=== PATIENT | female | born 1955 | race Caucasian/White ===

== ENCOUNTER 2018-04-15 14:02 | Inpatient (IN) | payer MEDICARE, OTHER ==
[2018-04-15 16:32] VITALS: BP 107/80
[2018-04-15 20:06] LABS: CHOLESTEROL 206 mg/dL (<200); HDL -HIGH DENSITY LIPOPROTEIN 39 mg/dL (23-92); TRIGLYCERIDES 317 mg/dL (<150)
[2018-04-15] MEDS ORDERED: Non-Formulary Item 1 EA (Trazodone Hcl [Trazodone Hcl] 150 MG) PO SCH (21:00)
[2018-04-16] MEDS ORDERED: Non-Formulary Item 1 EA (Fluoxetine Hcl [Prozac] 40 MG) PO SCH (09:00)
[2018-04-16] MEDS: Sulfamethoxazole/TMP 800/160mg Tab PO SCH ×2 (09:38→17:08)
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
[2018-04-16] MEDS: Hydrocodone/APAP 5mg/325mg Tab PO PRN (14:38)
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
[2018-04-17 07:24] LABS: ALB/GLOB RATIO 1.7 (1.0-1.8); ALKALINE PHOSPHATASE 81 U/L (34-104); ANION GAP 11.3 (7.0-16.0); BILIRUBIN,TOTAL 0.7 mg/dL (0.3-1.0); BUN - UREA NITROGEN 18 mg/dL (7-25); CALCIUM SERUM 9.9 mg/dL (8.6-10.3); CARBON DIOXIDE 24.1 mEq/L (21.0-31.0); CHLORIDE 106 mEq/L (98-107); CREATININE - SERUM 0.9 mg/dL (0.6-1.2); GFR AFRICAN-AMERICAN > 60.0 ml/min (>90); GFR NON AFRICAN-AMERICAN > 60.0 ml/min; GLUCOSE 88 mg/dL (70-105); POTASSIUM SERUM 4.4 mEq/L (3.5-5.1); SGOT 10 U/L (13-39); SGPT/ALT 9 U/L (7-52); SODIUM SERUM 137 mEq/L (136-145); TOTAL PROTEIN,SERUM 6.3 gm/dL (6.0-8.3)
[2018-04-17 07:29] LABS: % BASOPHILS 0.9 % (0.0-2.0); % EOSINOPHILS 3.5 % (0.0-5.0); % LYMPHOCYTES 32.3 % (20.0-50.0); % MONOCYTES 6.5 % (2.0-10.0); % NEUTROPHILS 56.8 % (40.0-80.0); BASOPHILE ABSOLUTE 0.1 Th/cumm (0-0.2); EOSINOPHILE ABSOLUTE 0.3 Th/cmm (0.1-0.4); HEMATOCRIT 38.3 % (41.0-60); HEMOGLOBIN 12.9 gm/dL (12-16); LYMPHOCYTE ABSOLUTE 2.8 Th/cmm (1.5-3.0); MEAN CELL VOLUME 85.3 fl (81-100); MEAN CORPUSCULAR HEMOGLOBIN 28.7 pg (27.0-31.0); MEAN CORPUSCULAR HGB CONC 33.7 pg (28.0-36.0); MEAN PLATELET VOLUME 9.8 fl; MONOCYTE ABSOLUTE 0.6 Th/cmm (0.3-1.0); NEUTROPHILE ABSOLUTE 4.8 Th/cmm (1.8-8.0); PLATELET COUNT 213 Th/cmm (150-400); RED BLOOD COUNT 4.49 Mil/cmm (3.80-5.20); RED CELL DISTRIBUTION WIDTH 12.3 % (11.5-20.0); WHITE BLOOD COUNT 8.6 Th/cmm (4.8-10.8)
[2018-04-17] MEDS: Sulfamethoxazole/TMP 800/160mg Tab PO SCH ×2 (08:55→17:10)
[2018-04-17] MEDS: Hydrocodone/APAP 5mg/325mg Tab PO PRN ×3 (08:56→21:15)
--- NOTE | 2018-04-17 13:06 | General Progress Note ---
Subjective - Review of Systems Service Date: 04/17/18 Subjective: Patient is confused Objective - Results Result Diagrams: 04/17/18 06:10 04/17/18 06:10 Recent Labs: Laboratory Last Values WBC 8.6 Th/cmm (4.8-10.8) 04/17/18 06:10 RBC 4.49 Mil/cmm (3.80-5.20) 04/17/18 06:10 Hgb 12.9 gm/dL (12-16) 04/17/18 06:10 Hct 38.3 % (41.0-60) L 04/17/18 06:10 MCV 85.3 fl (81-100) 04/17/18 06:10 MCH 28.7 pg (27.0-31.0) 04/17/18 06:10 MCHC Differential 33.7 pg (28.0-36.0) 04/17/18 06:10 RDW 12.3 % (11.5-20.0) 04/17/18 06:10 Plt Count 213 Th/cmm (150-400) 04/17/18 06:10 MPV 9.8 fl 04/17/18 06:10 Neutrophils % 56.8 % (40.0-80.0) 04/17/18 06:10 Lymphocytes % 32.3 % (20.0-50.0) 04/17/18 06:10 Monocytes % 6.5 % (2.0-10.0) 04/17/18 06:10 Eosinophils % 3.5 % (0.0-5.0) 04/17/18 06:10 Basophils % 0.9 % (0.0-2.0) 04/17/18 06:10 Sodium 137 mEq/L (136-145) 04/17/18 06:10 Potassium 4.4 mEq/L (3.5-5.1) 04/17/18 06:10 Chloride 106 mEq/L (98-107) 04/17/18 06:10 Carbon Dioxide 24.1 mEq/L (21.0-31.0) 04/17/18 06:10 Anion Gap 11.3 (7.0-16.0) 04/17/18 06:10 BUN 18 mg/dL (7-25) 04/17/18 06:10 Creatinine 0.9 mg/dL (0.6-1.2) 04/17/18 06:10 Est GFR ( Amer) > 60.0 ml/min (>90) 04/17/18 06:10 Est GFR (Non-Af Amer) > 60.0 ml/min 04/17/18 06:10 BUN/Creatinine Ratio 20.0 04/17/18 06:10 Glucose 88 mg/dL (70-105) 04/17/18 06:10 Calcium 9.9 mg/dL (8.6-10.3) 04/17/18 06:10 Total Bilirubin 0.7 mg/dL (0.3-1.0) 04/17/18 06:10 AST 10 U/L (13-39) L 04/17/18 06:10 ALT 9 U/L (7-52) 04/17/18 06:10 Alkaline Phosphatase 81 U/L (34-104) 04/17/18 06:10 Total Protein 6.3 gm/dL (6.0-8.3) 04/17/18 06:10 Albumin 4.0 gm/dL (3.7-5.3) 04/17/18 06:10 Globulin 2.3 gm/dL 04/17/18 06:10 Albumin/Globulin Ratio 1.7 (1.0-1.8) 04/17/18 06:10 Triglycerides 317 mg/dL (<150) H 04/15/18 19:45 Cholesterol 206 mg/dL (<200) H 04/15/18 19:45 LDL Cholesterol Direct 121 mg/dL (75-193) 04/15/18 19:45 HDL Cholesterol 39 mg/dL (23-92) 04/15/18 19:45 TSH 0.76 uIU/ml (0.34-5.60) 04/17/18 06:10 - Physical Exam Vitals and I&O: Vital Signs Temp 98.0 F 04/17/18 06:41 Pulse 71 04/17/18 06:41 Resp 18 04/17/18 06:41 BP 135/62 04/17/18 06:41 Pulse Ox 94 04/17/18 06:41 Intake & Output 04/16/18 04/17/18 04/17/18 18:59 06:59 18:59 Intake Total 480 Balance 480 Intake: Oral 480 Other: # Voids 2 Active Medications: Current Medications Acetaminophen/Hydrocodone Bitart ([place] 5mg/325mg) 1 tab PO Q4HR PRN PRN Reason: Pain (Severe) Stop: 06/15/18 11:57 Last Admin: 04/17/18 08:56 Dose: 1 tab Alprazolam (Xanax) 0.5 mg PO BID [facility]; Protocol Stop: 06/15/18 08:59 Last Admin: 04/17/18 08:56 Dose: 0.5 mg Aripiprazole (Abilify) 2.5 mg PO DAILY [facility]; Protocol Stop: 06/17/18 08:59 Fluoxetine HCl (Prozac) 40 mg PO DAILY [facility]; Protocol Stop: 06/15/18 08:59 Last Admin: 04/17/18 09:00 Dose: 40 mg Gabapentin (Neurontin) 300 mg PO BID [facility] Stop: 06/15/18 16:59 Last Admin: 04/17/18 08:55 Dose: 300 mg [place] Carbonate (Eskalith) 150 mg PO BID [facility]; Protocol Stop: 06/15/18 08:59 Last Admin: 04/17/18 08:55 Dose: 150 mg Silver Sulfadiazine (Ssd) 1 appl TP BID [facility]; Protocol Stop: 06/15/18 08:59 Last Admin: 04/17/18 09:00 Dose: 1 appl Trazodone HCl (Desyrel) 150 mg PO HS [facility]; Protocol Stop: 06/14/18 20:59 Last Admin: 04/16/18 20:48 Dose: 150 mg Trimethoprim/Sulfamethoxazole (Bactrim Ds) 1 tab PO BID [facility] Stop: 06/15/18 08:59 Last Admin: 04/17/18 08:55 Dose: 1 tab General: Alert, No acute distress, Other (Confused) HEENT: Atraumatic Neck: Supple Cardiovascular: Regular rate Lungs: Clear to auscultation Abdomen: Bowel sounds, Soft Extremities: Other (No edema) Neurological: Normal gait Skin: Other (Warm and dry) Psych/Mental Status: Other (Confused, not oriented) Assessment/Plan - Assessment Assessment: Patient is awake, alert, calm, in no acute distress. Dx: Depression, Bipolar disorder, Hydrocephalus, Periphereal neuropathy. - Plan Plan: Patient follow by psychiatry. Wound care in left arm, will continue with SNF meds. Will continue to monitor.
[2018-04-17] MEDS ORDERED: Probiotic Screen MC PRN (13:09)
[2018-04-17] MEDS: Lactobacillus Rhamnosus GG 15 Billion CFU CAP.SPRINK PO SCH (13:53)
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
[2018-04-18] MEDS: Hydrocodone/APAP 5mg/325mg Tab PO PRN ×3 (03:27→17:33)
--- NOTE | 2018-04-18 08:53 | General Progress Note ---
Subjective - Review of Systems Service Date: 04/18/18 Subjective: Patient is confused. Objective - Results Result Diagrams: 04/17/18 06:10 04/17/18 06:10 Recent Labs: Laboratory Last Values WBC 8.6 Th/cmm (4.8-10.8) 04/17/18 06:10 RBC 4.49 Mil/cmm (3.80-5.20) 04/17/18 06:10 Hgb 12.9 gm/dL (12-16) 04/17/18 06:10 Hct 38.3 % (41.0-60) L 04/17/18 06:10 MCV 85.3 fl (81-100) 04/17/18 06:10 MCH 28.7 pg (27.0-31.0) 04/17/18 06:10 MCHC Differential 33.7 pg (28.0-36.0) 04/17/18 06:10 RDW 12.3 % (11.5-20.0) 04/17/18 06:10 Plt Count 213 Th/cmm (150-400) 04/17/18 06:10 MPV 9.8 fl 04/17/18 06:10 Neutrophils % 56.8 % (40.0-80.0) 04/17/18 06:10 Lymphocytes % 32.3 % (20.0-50.0) 04/17/18 06:10 Monocytes % 6.5 % (2.0-10.0) 04/17/18 06:10 Eosinophils % 3.5 % (0.0-5.0) 04/17/18 06:10 Basophils % 0.9 % (0.0-2.0) 04/17/18 06:10 Sodium 137 mEq/L (136-145) 04/17/18 06:10 Potassium 4.4 mEq/L (3.5-5.1) 04/17/18 06:10 Chloride 106 mEq/L (98-107) 04/17/18 06:10 Carbon Dioxide 24.1 mEq/L (21.0-31.0) 04/17/18 06:10 Anion Gap 11.3 (7.0-16.0) 04/17/18 06:10 BUN 18 mg/dL (7-25) 04/17/18 06:10 Creatinine 0.9 mg/dL (0.6-1.2) 04/17/18 06:10 Est GFR ( Amer) > 60.0 ml/min (>90) 04/17/18 06:10 Est GFR (Non-Af Amer) > 60.0 ml/min 04/17/18 06:10 BUN/Creatinine Ratio 20.0 04/17/18 06:10 Glucose 88 mg/dL (70-105) 04/17/18 06:10 POC Glucose 119 MG/DL (70-105) H 04/15/18 17:10 Calcium 9.9 mg/dL (8.6-10.3) 04/17/18 06:10 Total Bilirubin 0.7 mg/dL (0.3-1.0) 04/17/18 06:10 AST 10 U/L (13-39) L 04/17/18 06:10 ALT 9 U/L (7-52) 04/17/18 06:10 Alkaline Phosphatase 81 U/L (34-104) 04/17/18 06:10 Total Protein 6.3 gm/dL (6.0-8.3) 04/17/18 06:10 Albumin 4.0 gm/dL (3.7-5.3) 04/17/18 06:10 Globulin 2.3 gm/dL 04/17/18 06:10 Albumin/Globulin Ratio 1.7 (1.0-1.8) 04/17/18 06:10 Triglycerides 317 mg/dL (<150) H 04/15/18 19:45 Cholesterol 206 mg/dL (<200) H 04/15/18 19:45 LDL Cholesterol Direct 121 mg/dL (75-193) 04/15/18 19:45 HDL Cholesterol 39 mg/dL (23-92) 04/15/18 19:45 TSH 0.76 uIU/ml (0.34-5.60) 04/17/18 06:10 - Physical Exam Vitals and I&O: Vital Signs Temp 97.4 F 04/18/18 06:54 Pulse 56 04/18/18 06:54 Resp 18 04/18/18 06:54 BP 136/77 04/18/18 06:54 Pulse Ox 97 04/18/18 06:54 Intake & Output 04/17/18 04/18/18 04/18/18 18:59 06:59 18:59 Intake Total 1200 240 Output Total 4 Balance 1196 240 Intake: Oral 1200 240 Output: Urine 4 Other: # Voids 2 # Bowel Movements 2 Active Medications: Current Medications Acetaminophen/Hydrocodone Bitart ([place] 5mg/325mg) 1 tab PO Q4HR PRN PRN Reason: Pain (Severe) Stop: 06/15/18 11:57 Last Admin: 04/18/18 03:27 Dose: 1 tab Alprazolam (Xanax) 1 mg PO DAILY [facility]; Protocol Stop: 06/17/18 08:59 Alprazolam (Xanax) 0.5 mg PO DAILY [facility]; Protocol Stop: 06/17/18 16:59 Aripiprazole (Abilify) 2.5 mg PO DAILY [facility]; Protocol Stop: 06/17/18 08:59 Fluoxetine HCl (Prozac) 40 mg PO DAILY [facility]; Protocol Stop: 06/15/18 08:59 Gabapentin (Neurontin) 300 mg PO BID [facility] Stop: 06/15/18 16:59 Last Admin: 04/17/18 17:10 Dose: 300 mg Lactobacillus Rhamnosus (Culturelle 15b) 1 each PO DAILY [facility] Stop: 06/16/18 13:59 Last Admin: 04/17/18 13:53 Dose: 1 each [place] Carbonate (Eskalith) 150 mg PO BID [facility]; Protocol Stop: 06/15/18 08:59 Last Admin: 04/17/18 17:10 Dose: 150 mg Miscellaneous (Probiotic Screen) 1 ea MC PRN PRN PRN Reason: PROTOCOL Stop: 06/16/18 13:08 Silver Sulfadiazine (Ssd) 1 appl TP BID [facility]; Protocol Stop: 06/15/18 08:59 Last Admin: 04/17/18 17:19 Dose: 1 appl Trazodone HCl (Desyrel) 150 mg PO HS [facility]; Protocol Stop: 06/14/18 20:59 Last Admin: 04/17/18 21:06 Dose: 150 mg Trimethoprim/Sulfamethoxazole (Bactrim Ds) 1 tab PO BID [facility] Stop: 06/15/18 08:59 Last Admin: 04/17/18 17:10 Dose: 1 tab General: Alert, No acute distress, Other (Confused) HEENT: Atraumatic Neck: Supple Cardiovascular: Regular rate Lungs: Clear to auscultation Abdomen: Bowel sounds, Soft Extremities: Other (No edema) Neurological: Normal gait Skin: Other (Warm and dry) Psych/Mental Status: Other (Confused, not oriented) Assessment/Plan - Assessment Assessment: Patient is awake, alert, calm, in no acute distress. Dx: Depression, Bipolar disorder, Hydrocephalus, Periphereal neuropathy. - Plan Plan: Patient follow by psychiatry. Wound care in left arm, will continue with SNF meds. Will continue to monitor.
[2018-04-18] MEDS: Lactobacillus Rhamnosus GG 15 Billion CFU CAP.SPRINK PO SCH (08:56)
[2018-04-18] MEDS: Sulfamethoxazole/TMP 800/160mg Tab PO SCH ×2 (08:56→17:32)
--- NOTE | 2018-04-18 17:42 | Progress Notes ---
DATE: 04/18/2018 PROGRESS ON THE UNIT: Case was discussed with staff of the patient, reviewed records. The patient continues to be depressed, overwhelmed. She continues to be unpredictable, impulsive. We are trying to get her back on her medications. She reported that she feels safe only with lithium 900 mg a day; however, I explained to her that now she is older and maybe her kidney function is not as good, maybe we will try to get her on a smaller dose. She is only now on 150 mg twice a day and I will make it 300 mg twice a day and then check level and do it accordingly. Also, she reported that she needed to be on Seroquel. She used to be on Seroquel and Zyprexa and Abilify altogether. I discussed with her these are heavy duty medications that have grave side effects, there is no point in taking 3 antipsychotics at the same time, and she agreed that she will stay only on Seroquel, so I will be initiating Seroquel 100 mg at bedtime, increase the dose accordingly. PLAN: We will continue to work with the patient in group therapy and milieu therapy, adjust the medications as needed. JOB# [id number]
--- NOTE | 2018-04-19 08:46 | General Progress Note ---
Subjective - Review of Systems Service Date: 04/19/18 Subjective: Patient is confused. Objective - Results Result Diagrams: 04/17/18 06:10 04/17/18 06:10 Recent Labs: Laboratory Last Values WBC 8.6 Th/cmm (4.8-10.8) 04/17/18 06:10 RBC 4.49 Mil/cmm (3.80-5.20) 04/17/18 06:10 Hgb 12.9 gm/dL (12-16) 04/17/18 06:10 Hct 38.3 % (41.0-60) L 04/17/18 06:10 MCV 85.3 fl (81-100) 04/17/18 06:10 MCH 28.7 pg (27.0-31.0) 04/17/18 06:10 MCHC Differential 33.7 pg (28.0-36.0) 04/17/18 06:10 RDW 12.3 % (11.5-20.0) 04/17/18 06:10 Plt Count 213 Th/cmm (150-400) 04/17/18 06:10 MPV 9.8 fl 04/17/18 06:10 Neutrophils % 56.8 % (40.0-80.0) 04/17/18 06:10 Lymphocytes % 32.3 % (20.0-50.0) 04/17/18 06:10 Monocytes % 6.5 % (2.0-10.0) 04/17/18 06:10 Eosinophils % 3.5 % (0.0-5.0) 04/17/18 06:10 Basophils % 0.9 % (0.0-2.0) 04/17/18 06:10 Sodium 137 mEq/L (136-145) 04/17/18 06:10 Potassium 4.4 mEq/L (3.5-5.1) 04/17/18 06:10 Chloride 106 mEq/L (98-107) 04/17/18 06:10 Carbon Dioxide 24.1 mEq/L (21.0-31.0) 04/17/18 06:10 Anion Gap 11.3 (7.0-16.0) 04/17/18 06:10 BUN 18 mg/dL (7-25) 04/17/18 06:10 Creatinine 0.9 mg/dL (0.6-1.2) 04/17/18 06:10 Est GFR ( Amer) > 60.0 ml/min (>90) 04/17/18 06:10 Est GFR (Non-Af Amer) > 60.0 ml/min 04/17/18 06:10 BUN/Creatinine Ratio 20.0 04/17/18 06:10 Glucose 88 mg/dL (70-105) 04/17/18 06:10 POC Glucose 119 MG/DL (70-105) H 04/15/18 17:10 Calcium 9.9 mg/dL (8.6-10.3) 04/17/18 06:10 Total Bilirubin 0.7 mg/dL (0.3-1.0) 04/17/18 06:10 AST 10 U/L (13-39) L 04/17/18 06:10 ALT 9 U/L (7-52) 04/17/18 06:10 Alkaline Phosphatase 81 U/L (34-104) 04/17/18 06:10 Total Protein 6.3 gm/dL (6.0-8.3) 04/17/18 06:10 Albumin 4.0 gm/dL (3.7-5.3) 04/17/18 06:10 Globulin 2.3 gm/dL 04/17/18 06:10 Albumin/Globulin Ratio 1.7 (1.0-1.8) 04/17/18 06:10 Triglycerides 317 mg/dL (<150) H 04/15/18 19:45 Cholesterol 206 mg/dL (<200) H 04/15/18 19:45 LDL Cholesterol Direct 121 mg/dL (75-193) 04/15/18 19:45 HDL Cholesterol 39 mg/dL (23-92) 04/15/18 19:45 TSH 0.76 uIU/ml (0.34-5.60) 04/17/18 06:10 - Physical Exam Vitals and I&O: Vital Signs Temp 98.9 F 04/19/18 06:06 Pulse 57 04/19/18 06:06 Resp 18 04/19/18 06:06 BP 97/54 04/19/18 06:06 Pulse Ox 96 04/19/18 06:06 Active Medications: Current Medications Acetaminophen/Hydrocodone Bitart ([place] 5mg/325mg) 1 tab PO Q4HR PRN PRN Reason: Pain (Severe) Stop: 06/15/18 11:57 Last Admin: 04/18/18 17:33 Dose: 1 tab Alprazolam (Xanax) 1 mg PO DAILY [facility]; Protocol Stop: 06/17/18 08:59 Last Admin: 04/18/18 08:56 Dose: 1 mg Alprazolam (Xanax) 0.5 mg PO DAILY [facility]; Protocol Stop: 06/17/18 16:59 Last Admin: 04/18/18 18:16 Dose: 0.5 mg Fluoxetine HCl (Prozac) 40 mg PO DAILY [facility]; Protocol Stop: 06/15/18 08:59 Last Admin: 04/18/18 09:10 Dose: 40 mg Gabapentin (Neurontin) 300 mg PO BID [facility] Stop: 06/15/18 16:59 Last Admin: 04/18/18 17:32 Dose: 300 mg Lactobacillus Rhamnosus (Culturelle 15b) 1 each PO DAILY [facility] Stop: 06/16/18 13:59 Last Admin: 04/18/18 08:56 Dose: 1 each [place] Carbonate (Eskalith) 300 mg PO BID [facility]; Protocol Stop: 06/17/18 16:59 Last Admin: 04/18/18 17:34 Dose: 300 mg Miscellaneous (Probiotic Screen) 1 ea MC PRN PRN PRN Reason: PROTOCOL Stop: 06/16/18 13:08 Quetiapine Fumarate (Seroquel) 100 mg PO HS [facility]; Protocol Stop: 06/17/18 20:59 Last Admin: 04/18/18 20:11 Dose: 100 mg Silver Sulfadiazine (Ssd) 1 appl TP BID [facility]; Protocol Stop: 06/15/18 08:59 Last Admin: 04/18/18 17:36 Dose: 1 appl Trazodone HCl (Desyrel) 150 mg PO HS [facility]; Protocol Stop: 06/14/18 20:59 Last Admin: 04/18/18 20:11 Dose: 150 mg Trimethoprim/Sulfamethoxazole (Bactrim Ds) 1 tab PO BID [facility] Stop: 06/15/18 08:59 Last Admin: 04/18/18 17:32 Dose: 1 tab General: Alert, No acute distress, Other (Confused) HEENT: Atraumatic Neck: Supple Cardiovascular: Regular rate Lungs: Clear to auscultation Abdomen: Bowel sounds, Soft Extremities: Other (No edema) Neurological: Normal gait Skin: Other (Warm and dry) Psych/Mental Status: Other (Confused, not oriented) Assessment/Plan - Assessment Assessment: Patient is awake, alert, calm, in no acute distress. Dx: Depression, Bipolar disorder, Hydrocephalus, Periphereal neuropathy. - Plan Plan: Patient follow by psychiatry. Wound care in left arm, will continue with SNF meds. Will continue to monitor.
[2018-04-19] MEDS: Lactobacillus Rhamnosus GG 15 Billion CFU CAP.SPRINK PO SCH (08:47)
[2018-04-19] MEDS: Sulfamethoxazole/TMP 800/160mg Tab PO SCH ×2 (08:47→16:57)
[2018-04-19] MEDS: Hydrocodone/APAP 5mg/325mg Tab PO PRN ×2 (10:02→21:41)
[2018-04-20] MEDS: Lactobacillus Rhamnosus GG 15 Billion CFU CAP.SPRINK PO SCH (08:17)
[2018-04-20] MEDS: Sulfamethoxazole/TMP 800/160mg Tab PO SCH ×2 (08:17→16:40)
--- NOTE | 2018-04-20 08:44 | General Progress Note ---
Subjective - Review of Systems Service Date: 04/20/18 Subjective: Patient is confused. Objective - Results Result Diagrams: 04/17/18 06:10 04/17/18 06:10 Recent Labs: Laboratory Last Values WBC 8.6 Th/cmm (4.8-10.8) 04/17/18 06:10 RBC 4.49 Mil/cmm (3.80-5.20) 04/17/18 06:10 Hgb 12.9 gm/dL (12-16) 04/17/18 06:10 Hct 38.3 % (41.0-60) L 04/17/18 06:10 MCV 85.3 fl (81-100) 04/17/18 06:10 MCH 28.7 pg (27.0-31.0) 04/17/18 06:10 MCHC Differential 33.7 pg (28.0-36.0) 04/17/18 06:10 RDW 12.3 % (11.5-20.0) 04/17/18 06:10 Plt Count 213 Th/cmm (150-400) 04/17/18 06:10 MPV 9.8 fl 04/17/18 06:10 Neutrophils % 56.8 % (40.0-80.0) 04/17/18 06:10 Lymphocytes % 32.3 % (20.0-50.0) 04/17/18 06:10 Monocytes % 6.5 % (2.0-10.0) 04/17/18 06:10 Eosinophils % 3.5 % (0.0-5.0) 04/17/18 06:10 Basophils % 0.9 % (0.0-2.0) 04/17/18 06:10 Sodium 137 mEq/L (136-145) 04/17/18 06:10 Potassium 4.4 mEq/L (3.5-5.1) 04/17/18 06:10 Chloride 106 mEq/L (98-107) 04/17/18 06:10 Carbon Dioxide 24.1 mEq/L (21.0-31.0) 04/17/18 06:10 Anion Gap 11.3 (7.0-16.0) 04/17/18 06:10 BUN 18 mg/dL (7-25) 04/17/18 06:10 Creatinine 0.9 mg/dL (0.6-1.2) 04/17/18 06:10 Est GFR ( Amer) > 60.0 ml/min (>90) 04/17/18 06:10 Est GFR (Non-Af Amer) > 60.0 ml/min 04/17/18 06:10 BUN/Creatinine Ratio 20.0 04/17/18 06:10 Glucose 88 mg/dL (70-105) 04/17/18 06:10 POC Glucose 119 MG/DL (70-105) H 04/15/18 17:10 Calcium 9.9 mg/dL (8.6-10.3) 04/17/18 06:10 Total Bilirubin 0.7 mg/dL (0.3-1.0) 04/17/18 06:10 AST 10 U/L (13-39) L 04/17/18 06:10 ALT 9 U/L (7-52) 04/17/18 06:10 Alkaline Phosphatase 81 U/L (34-104) 04/17/18 06:10 Total Protein 6.3 gm/dL (6.0-8.3) 04/17/18 06:10 Albumin 4.0 gm/dL (3.7-5.3) 04/17/18 06:10 Globulin 2.3 gm/dL 04/17/18 06:10 Albumin/Globulin Ratio 1.7 (1.0-1.8) 04/17/18 06:10 Triglycerides 317 mg/dL (<150) H 04/15/18 19:45 Cholesterol 206 mg/dL (<200) H 04/15/18 19:45 LDL Cholesterol Direct 121 mg/dL (75-193) 04/15/18 19:45 HDL Cholesterol 39 mg/dL (23-92) 04/15/18 19:45 TSH 0.76 uIU/ml (0.34-5.60) 04/17/18 06:10 - Physical Exam Vitals and I&O: Vital Signs Temp 98.1 F 04/20/18 06:38 Pulse 61 04/20/18 06:38 Resp 18 04/20/18 06:38 BP 104/64 04/20/18 06:38 Pulse Ox 96 04/20/18 06:38 Intake & Output 09/12/18 09/13/18 09/13/18 18:59 06:59 18:59 Intake Total 1500 500 Balance 1500 500 Intake: Oral 1500 500 Other: # Voids 4 4 # Bowel Movements 0 0 Active Medications: Current Medications Acetaminophen/Hydrocodone Bitart ([place] 5mg/325mg) 1 tab PO Q4HR PRN PRN Reason: Pain (Severe) Stop: 06/15/18 11:57 Last Admin: 04/19/18 21:41 Dose: 1 tab Alprazolam (Xanax) 1 mg PO DAILY [facility]; Protocol Stop: 06/17/18 08:59 Last Admin: 04/20/18 08:17 Dose: 1 mg Alprazolam (Xanax) 0.5 mg PO 1700 [facility]; Protocol Stop: 06/18/18 16:59 Last Admin: 04/19/18 16:58 Dose: 0.5 mg Fluoxetine HCl (Prozac) 40 mg PO DAILY [facility]; Protocol Stop: 06/15/18 08:59 Last Admin: 04/20/18 08:16 Dose: 40 mg Gabapentin (Neurontin) 300 mg PO BID [facility] Stop: 06/15/18 16:59 Last Admin: 04/20/18 08:17 Dose: 300 mg Lactobacillus Rhamnosus (Culturelle 15b) 1 each PO DAILY [facility] Stop: 06/16/18 13:59 Last Admin: 04/20/18 08:17 Dose: 1 each [place] Carbonate (Eskalith) 300 mg PO BID [facility]; Protocol Stop: 06/17/18 16:59 Last Admin: 04/20/18 08:18 Dose: 300 mg Miscellaneous (Probiotic Screen) 1 ea MC PRN PRN PRN Reason: PROTOCOL Stop: 06/16/18 13:08 Quetiapine Fumarate (Seroquel) 100 mg PO HS [facility]; Protocol Stop: 06/17/18 20:59 Last Admin: 04/19/18 21:20 Dose: 100 mg Silver Sulfadiazine (Ssd) 1 appl TP BID [facility]; Protocol Stop: 06/15/18 08:59 Last Admin: 04/20/18 08:19 Dose: 1 appl Trazodone HCl (Desyrel) 150 mg PO HS [facility]; Protocol Stop: 06/14/18 20:59 Last Admin: 04/19/18 21:20 Dose: 150 mg Trimethoprim/Sulfamethoxazole (Bactrim Ds) 1 tab PO BID [facility] Stop: 06/15/18 08:59 Last Admin: 04/20/18 08:17 Dose: 1 tab General: Alert, No acute distress, Other (Confused) HEENT: Atraumatic Neck: Supple Cardiovascular: Regular rate Lungs: Clear to auscultation Abdomen: Bowel sounds, Soft Extremities: Other (No edema) Neurological: Normal gait Skin: Other (Warm and dry) Psych/Mental Status: Other (Confused, not oriented) Assessment/Plan - Assessment Assessment: Patient is awake, alert, calm, in no acute distress. Dx: Depression, Bipolar disorder, Hydrocephalus, Periphereal neuropathy. - Plan Plan: Patient follow by psychiatry. Wound care in left arm, will continue with SNF meds. Will continue to monitor.
[2018-04-20] MEDS: Hydrocodone/APAP 5mg/325mg Tab PO PRN (08:50)
[2018-04-20] MEDS: Atorvastatin Calcium 10 MG TAB PO SCH (10:00)
--- NOTE | 2018-04-20 17:13 | Progress Notes ---
DATE: 04/20/2018 Case was discussed with staff of the patient, reviewed records. The patient reports she has not been sleeping well. The patient also reported that she has being used to being on Lamictal. She has not taken it in four months. She continues to have mood swings, irritability. I will be increasing the Seroquel to 150 mg at bedtime. Also the patient has peripheral neuropathy, and would like to have a walker and I discussed it with staff giving her walker, so they are going to order physical therapy for her as well. 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 If there is any rash, to stop the medication and go to the Emergency Room, which the patient reports that she is aware of it and that she should be careful with not missing medication more than 4 days, so she has to go back to the first minimal dose because of possible rash and the patient's lab work showed a low hematocrit, the rest within normal range. Chemistry panel with high blood sugar, the rest within normal range. Has high triglyceride and high cholesterol. She is already on Lipitor. We will continue to work with the patient in group therapy, milieu therapy, and adjust the medication as needed. JOB# [id number]
[2018-04-21] MEDS: Hydrocodone/APAP 5mg/325mg Tab PO PRN (06:34)
[2018-04-21] MEDS: Sulfamethoxazole/TMP 800/160mg Tab PO SCH ×2 (08:43→16:16)
[2018-04-21] MEDS: Atorvastatin Calcium 10 MG TAB PO SCH (08:44)
[2018-04-21] MEDS: Lactobacillus Rhamnosus GG 15 Billion CFU CAP.SPRINK PO SCH (08:44)
--- NOTE | 2018-04-21 09:39 | General Progress Note ---
Subjective - Review of Systems Service Date: 04/21/18 Subjective: Patient is confused. Objective - Results Result Diagrams: 04/17/18 06:10 04/17/18 06:10 Recent Labs: Laboratory Last Values WBC 8.6 Th/cmm (4.8-10.8) 04/17/18 06:10 RBC 4.49 Mil/cmm (3.80-5.20) 04/17/18 06:10 Hgb 12.9 gm/dL (12-16) 04/17/18 06:10 Hct 38.3 % (41.0-60) L 04/17/18 06:10 MCV 85.3 fl (81-100) 04/17/18 06:10 MCH 28.7 pg (27.0-31.0) 04/17/18 06:10 MCHC Differential 33.7 pg (28.0-36.0) 04/17/18 06:10 RDW 12.3 % (11.5-20.0) 04/17/18 06:10 Plt Count 213 Th/cmm (150-400) 04/17/18 06:10 MPV 9.8 fl 04/17/18 06:10 Neutrophils % 56.8 % (40.0-80.0) 04/17/18 06:10 Lymphocytes % 32.3 % (20.0-50.0) 04/17/18 06:10 Monocytes % 6.5 % (2.0-10.0) 04/17/18 06:10 Eosinophils % 3.5 % (0.0-5.0) 04/17/18 06:10 Basophils % 0.9 % (0.0-2.0) 04/17/18 06:10 Sodium 137 mEq/L (136-145) 04/17/18 06:10 Potassium 4.4 mEq/L (3.5-5.1) 04/17/18 06:10 Chloride 106 mEq/L (98-107) 04/17/18 06:10 Carbon Dioxide 24.1 mEq/L (21.0-31.0) 04/17/18 06:10 Anion Gap 11.3 (7.0-16.0) 04/17/18 06:10 BUN 18 mg/dL (7-25) 04/17/18 06:10 Creatinine 0.9 mg/dL (0.6-1.2) 04/17/18 06:10 Est GFR ( Amer) > 60.0 ml/min (>90) 04/17/18 06:10 Est GFR (Non-Af Amer) > 60.0 ml/min 04/17/18 06:10 BUN/Creatinine Ratio 20.0 04/17/18 06:10 Glucose 88 mg/dL (70-105) 04/17/18 06:10 POC Glucose 119 MG/DL (70-105) H 04/15/18 17:10 Calcium 9.9 mg/dL (8.6-10.3) 04/17/18 06:10 Total Bilirubin 0.7 mg/dL (0.3-1.0) 04/17/18 06:10 AST 10 U/L (13-39) L 04/17/18 06:10 ALT 9 U/L (7-52) 04/17/18 06:10 Alkaline Phosphatase 81 U/L (34-104) 04/17/18 06:10 Total Protein 6.3 gm/dL (6.0-8.3) 04/17/18 06:10 Albumin 4.0 gm/dL (3.7-5.3) 04/17/18 06:10 Globulin 2.3 gm/dL 04/17/18 06:10 Albumin/Globulin Ratio 1.7 (1.0-1.8) 04/17/18 06:10 Triglycerides 317 mg/dL (<150) H 04/15/18 19:45 Cholesterol 206 mg/dL (<200) H 04/15/18 19:45 LDL Cholesterol Direct 121 mg/dL (75-193) 04/15/18 19:45 HDL Cholesterol 39 mg/dL (23-92) 04/15/18 19:45 TSH 0.76 uIU/ml (0.34-5.60) 04/17/18 06:10 - Physical Exam Vitals and I&O: Vital Signs Temp 97.9 F 04/21/18 07:03 Pulse 62 04/21/18 07:03 Resp 18 04/21/18 07:03 BP 112/66 04/21/18 07:03 Pulse Ox 94 04/21/18 07:03 Intake & Output 04/20/18 04/21/18 04/21/18 18:59 06:59 18:59 Other: # Voids 3 # Bowel Movements 1 Active Medications: Current Medications Acetaminophen/Hydrocodone Bitart ([place] 5mg/325mg) 1 tab PO Q4HR PRN PRN Reason: Pain (Severe) Stop: 06/15/18 11:57 Last Admin: 04/21/18 06:34 Dose: 1 tab Alprazolam (Xanax) 1 mg PO DAILY [facility]; Protocol Stop: 06/17/18 08:59 Last Admin: 04/21/18 08:44 Dose: 1 mg Alprazolam (Xanax) 0.5 mg PO 1700 [facility]; Protocol Stop: 06/18/18 16:59 Last Admin: 04/20/18 16:41 Dose: 0.5 mg Atorvastatin Calcium (Lipitor) 10 mg PO DAILY [facility]; Protocol Stop: 06/19/18 08:59 Last Admin: 04/21/18 08:44 Dose: 10 mg Fluoxetine HCl (Prozac) 40 mg PO DAILY [facility]; Protocol Stop: 06/15/18 08:59 Last Admin: 04/21/18 09:02 Dose: 40 mg Gabapentin (Neurontin) 300 mg PO BID [facility] Stop: 06/15/18 16:59 Last Admin: 04/21/18 08:43 Dose: 300 mg Lactobacillus Rhamnosus (Culturelle 15b) 1 each PO DAILY [facility] Stop: 06/16/18 13:59 Last Admin: 04/21/18 08:44 Dose: 1 each Lamotrigine (Lamictal) 25 mg PO DAILY [facility]; Protocol Stop: 06/20/18 08:59 Last Admin: 04/21/18 08:43 Dose: 25 mg [place] Carbonate (Eskalith) 300 mg PO BID [facility]; Protocol Stop: 06/17/18 16:59 Last Admin: 04/21/18 08:43 Dose: 300 mg Miscellaneous (Probiotic Screen) 1 ea MC PRN PRN PRN Reason: PROTOCOL Stop: 06/16/18 13:08 Quetiapine Fumarate 100 mg/ (Quetiapine Fumarate 50 mg) 150 mg PO HS [facility] Stop: 06/19/18 20:59 Last Admin: 04/20/18 21:43 Dose: 150 mg Silver Sulfadiazine (Ssd) 1 appl TP BID [facility]; Protocol Stop: 06/15/18 08:59 Last Admin: 04/21/18 09:02 Dose: 1 appl Trazodone HCl (Desyrel) 150 mg PO HS [facility]; Protocol Stop: 06/14/18 20:59 Last Admin: 04/20/18 21:43 Dose: 150 mg Trimethoprim/Sulfamethoxazole (Bactrim Ds) 1 tab PO BID [facility] Stop: 06/15/18 08:59 Last Admin: 04/21/18 08:43 Dose: 1 tab General: Alert, No acute distress, Other (Confused) HEENT: Atraumatic Neck: Supple Cardiovascular: Regular rate Lungs: Clear to auscultation Abdomen: Bowel sounds, Soft Extremities: Other (No edema) Neurological: Normal gait Skin: Other (Warm and dry) Psych/Mental Status: Other (Confused, not oriented) Assessment/Plan - Assessment Assessment: Patient is awake, alert, calm, in no acute distress. Dx: Depression, Bipolar disorder, Hydrocephalus, Periphereal neuropathy. - Plan Plan: Patient follow by psychiatry. Wound care in left arm, will continue with SNF meds. Will continue to monitor. Nutritional Asmnt/Malnutr-PDOC - Dietary Evaluation Malnutrition Findings (Please click <Entered> for more info): Nutritional Asmnt/Malnutrition Start: 04/20/18 15: 13 Text: Status: Complete Freq: Protocol: Document 04/20/18 15:13 LCHENG (Rec: 04/20/18 15:28 [email or web address]) Nutritional Asmnt/Malnutrition Patient General Information Nutritional Screening Low Risk Diagnosis psychosis Pertinent Medical Hx/Surgical Hx addictions, bipolar, normal presure hydrocephalus, peripheal neuropathy Subjective Information Pt seen sitting on bed at time of visit, awake and alert. pt stated food was fine, no question or concern. Per EMR, PO intake 100%. Current Diet Order/ Nutrition Support regular Pertinent Medications lipitor, culturelle Pertinent Labs 04/17 nutrition labs WNL Nutritional Hx/Data Height 1.73 m Height (Calculated Centimeters) 172.7 Current Weight (lbs) 76.204 kg Weight (Calculated Kilograms) 76.2 Weight (Calculated Grams) 72735.5 [facility] Body Weight 140 Body Mass Index (BMI) 25.5 Weight Status Overweight GI Symptoms GI Symptoms None Last BM 04/17 x 2 Difficult in: None Skin Integrity/Comment: no skin problem noted per EMR Current %PO Good (75-100%) Estimated Nutritional Goals BEE in Kcals: Using Current wt Calories/Kcals/Kg 23-27 Kcals Calculated 0364-4217 Protein: Using Current wt Protein g/k.8-1 Protein Calculated 61-76 Fluid: ml 1748-2051ml (1ml/kcal) Nutritional Problem No current Nutrition Prob Problem N/A Malnutrition Alert Is there a minimum of two criteria No selected? Query Text:Check all the applicable criteria. A minimum of two criteria are recommended for diagnosis of either severe or non-severe malnutrition. Malnutrition Related to Morbid Obesity Malnutrition related to morbid obesity No Intervention/Recommendation Comments 1. Continue with regular diet as ordered. 2. Monitor PO intake, wt, labs and skin integrity 3. F/U as low risk in 7 days, 04/27 Expected Outcomes/Goals Expected Outcomes/Goals 1. PO intake to meet at least 75% of nutritional needs. 2. Wt stability, skin to remain intact, labs to approach WNL.
--- NOTE | 2018-04-21 21:16 | Progress Notes ---
DATE: 04/21/2018 SUBJECTIVE: Case was discussed with staff of the patient, reviewed records. The patient was initiated on Lamictal yesterday. The patient continues to be easily overwhelmed, directable, depressed, continues to be unable to make safe plan for self-care. The patient continues to be easily agitated. No side effects with the medication, no sedation, no nausea, no extrapyramidal symptoms. We will be checking her lithium level and her TSH within normal range. Chemistry panel with high blood sugar, the rest within normal range. She has high triglyceride and cholesterol. CBC with low hematocrit, the rest within normal range. We will continue the patient in group therapy, milieu therapy, adjust medication as needed. JOB# [id number]
[2018-04-22] MEDS: Hydrocodone/APAP 5mg/325mg Tab PO PRN ×2 (06:45→15:25)
[2018-04-22] MEDS: Lactobacillus Rhamnosus GG 15 Billion CFU CAP.SPRINK PO SCH (08:55)
[2018-04-22] MEDS: Atorvastatin Calcium 10 MG TAB PO SCH (08:55)
--- NOTE | 2018-04-22 09:56 | General Progress Note ---
Subjective - Review of Systems Service Date: 04/22/18 Subjective: Patient is complaining of rash in face. Objective - Results Result Diagrams: 04/17/18 06:10 04/17/18 06:10 Recent Labs: Laboratory Last Values WBC 8.6 Th/cmm (4.8-10.8) 04/17/18 06:10 RBC 4.49 Mil/cmm (3.80-5.20) 04/17/18 06:10 Hgb 12.9 gm/dL (12-16) 04/17/18 06:10 Hct 38.3 % (41.0-60) L 04/17/18 06:10 MCV 85.3 fl (81-100) 04/17/18 06:10 MCH 28.7 pg (27.0-31.0) 04/17/18 06:10 MCHC Differential 33.7 pg (28.0-36.0) 04/17/18 06:10 RDW 12.3 % (11.5-20.0) 04/17/18 06:10 Plt Count 213 Th/cmm (150-400) 04/17/18 06:10 MPV 9.8 fl 04/17/18 06:10 Neutrophils % 56.8 % (40.0-80.0) 04/17/18 06:10 Lymphocytes % 32.3 % (20.0-50.0) 04/17/18 06:10 Monocytes % 6.5 % (2.0-10.0) 04/17/18 06:10 Eosinophils % 3.5 % (0.0-5.0) 04/17/18 06:10 Basophils % 0.9 % (0.0-2.0) 04/17/18 06:10 Sodium 137 mEq/L (136-145) 04/17/18 06:10 Potassium 4.4 mEq/L (3.5-5.1) 04/17/18 06:10 Chloride 106 mEq/L (98-107) 04/17/18 06:10 Carbon Dioxide 24.1 mEq/L (21.0-31.0) 04/17/18 06:10 Anion Gap 11.3 (7.0-16.0) 04/17/18 06:10 BUN 18 mg/dL (7-25) 04/17/18 06:10 Creatinine 0.9 mg/dL (0.6-1.2) 04/17/18 06:10 Est GFR ( Amer) > 60.0 ml/min (>90) 04/17/18 06:10 Est GFR (Non-Af Amer) > 60.0 ml/min 04/17/18 06:10 BUN/Creatinine Ratio 20.0 04/17/18 06:10 Glucose 88 mg/dL (70-105) 04/17/18 06:10 POC Glucose 119 MG/DL (70-105) H 04/15/18 17:10 Calcium 9.9 mg/dL (8.6-10.3) 04/17/18 06:10 Total Bilirubin 0.7 mg/dL (0.3-1.0) 04/17/18 06:10 AST 10 U/L (13-39) L 04/17/18 06:10 ALT 9 U/L (7-52) 04/17/18 06:10 Alkaline Phosphatase 81 U/L (34-104) 04/17/18 06:10 Total Protein 6.3 gm/dL (6.0-8.3) 04/17/18 06:10 Albumin 4.0 gm/dL (3.7-5.3) 04/17/18 06:10 Globulin 2.3 gm/dL 04/17/18 06:10 Albumin/Globulin Ratio 1.7 (1.0-1.8) 04/17/18 06:10 Triglycerides 317 mg/dL (<150) H 04/15/18 19:45 Cholesterol 206 mg/dL (<200) H 04/15/18 19:45 LDL Cholesterol Direct 121 mg/dL (75-193) 04/15/18 19:45 HDL Cholesterol 39 mg/dL (23-92) 04/15/18 19:45 TSH 0.76 uIU/ml (0.34-5.60) 04/17/18 06:10 - Physical Exam Vitals and I&O: Vital Signs Temp 98.7 F 04/22/18 05:00 Pulse 83 04/22/18 05:00 Resp 20 04/22/18 05:00 BP 111/76 04/22/18 05:00 Pulse Ox 95 04/22/18 05:00 Intake & Output 04/21/18 04/22/1804/22/18 18:59 06:59 18:59 Intake Total 480 Balance 480 Intake: Oral 480 Other: # Voids 2 Active Medications: Current Medications Acetaminophen/Hydrocodone Bitart ([place] 5mg/325mg) 1 tab PO Q4HR PRN PRN Reason: Pain (Severe) Stop: 06/15/18 11:57 Last Admin: 04/22/18 06:45 Dose: 1 tab Alprazolam (Xanax) 1 mg PO DAILY [facility]; Protocol Stop: 06/17/18 08:59 Last Admin: 04/22/18 08:55 Dose: 1 mg Alprazolam (Xanax) 0.5 mg PO 1700 [facility]; Protocol Stop: 06/18/18 16:59 Last Admin: 04/21/18 16:16 Dose: 0.5 mg Atorvastatin Calcium (Lipitor) 10 mg PO DAILY [facility]; Protocol Stop: 06/19/18 08:59 Last Admin: 04/22/18 08:55 Dose: 10 mg Fluoxetine HCl (Prozac) 40 mg PO DAILY [facility]; Protocol Stop: 06/20/18 10:29 Last Admin: 04/22/18 08:55 Dose: 40 mg Gabapentin (Neurontin) 300 mg PO BID [facility] Stop: 06/15/18 16:59 Last Admin: 04/22/18 08:55 Dose: 300 mg Lactobacillus Rhamnosus (Culturelle 15b) 1 each PO DAILY [facility] Stop: 06/16/18 13:59 Last Admin: 04/22/18 08:55 Dose: 1 each Lamotrigine (Lamictal) 25 mg PO DAILY [facility]; Protocol Stop: 06/20/18 08:59 Last Admin: 04/22/18 08:55 Dose: 25 mg [place] Carbonate (Eskalith) 300 mg PO BID [facility]; Protocol Stop: 06/17/18 16:59 Last Admin: 04/22/18 09:17 Dose: 300 mg Miscellaneous (Probiotic Screen) 1 ea MC PRN PRN PRN Reason: PROTOCOL Stop: 06/16/18 13:08 Quetiapine Fumarate 100 mg/ (Quetiapine Fumarate 50 mg) 150 mg PO HS [facility] Stop: 06/19/18 20:59 Last Admin: 04/21/18 20:30 Dose: 150 mg Silver Sulfadiazine (Ssd) 1 appl TP BID [facility]; Protocol Stop: 06/15/18 08:59 Last Admin: 04/22/18 09:24 Dose: 1 appl Trazodone HCl (Desyrel) 150 mg PO HS [facility]; Protocol Stop: 06/14/18 20:59 Last Admin: 04/21/18 20:31 Dose: 150 mg General: Alert, No acute distress, Other (Confused) HEENT: Atraumatic Neck: Supple Cardiovascular: Regular rate Lungs: Clear to auscultation Abdomen: Bowel sounds, Soft Extremities: Other (No edema) Neurological: Normal gait Skin: Other (Redness of face.) Psych/Mental Status: Other (Confused, not oriented) Assessment/Plan - Assessment Assessment: Patient is awake, alert, calm, in no acute distress. Dx: Contact dermatitis, Depression, Bipolar disorder, Hydrocephalus, Periphereal neuropathy. - Plan Plan: Patient follow by psychiatry. Wound care in left arm, will continue with SNF meds. Triamcinolone cream is added to treatment, soap will be change to Neutral soap. Will continue to monitor. Nutritional Asmnt/Malnutr-PDOC - Dietary Evaluation Malnutrition Findings (Please click <Entered> for more info): Nutritional Asmnt/Malnutrition Start: 04/20/18 15: 13 Text: Status: Complete Freq: Protocol: Document 04/20/18 15:13 LCHENG (Rec: 04/20/18 15:28 [email or web address]) Nutritional Asmnt/Malnutrition Patient General Information Nutritional Screening Low Risk Diagnosis psychosis Pertinent Medical Hx/Surgical Hx addictions, bipolar, normal presure hydrocephalus, peripheal neuropathy Subjective Information Pt seen sitting on bed at time of visit, awake and alert. pt stated food was fine, no question or concern. Per EMR, PO intake 100%. Current Diet Order/ Nutrition Support regular Pertinent Medications lipitor, culturelle Pertinent Labs 04/17 nutrition labs WNL Nutritional Hx/Data Height 1.73 m Height (Calculated Centimeters) 172.7 Current Weight (lbs) 76.204 kg Weight (Calculated Kilograms) 76.2 Weight (Calculated Grams) 59475.5 [place] Body Weight 140 Body Mass Index (BMI) 25.5 Weight Status Overweight GI Symptoms GI Symptoms None Last BM 04/17 x 2 Difficult in: None Skin Integrity/Comment: no skin problem noted per EMR Current %PO Good (75-100%) Estimated Nutritional Goals BEE in Kcals: Using Current wt Calories/Kcals/Kg 23-27 Kcals Calculated 5645-1758 Protein: Using Current wt Protein g/k.8-1 Protein Calculated 61-76 Fluid: ml 1748-2051ml (1ml/kcal) Nutritional Problem No current Nutrition Prob Problem N/A Malnutrition Alert Is there a minimum of two criteria No selected? Query Text:Check all the applicable criteria. A minimum of two criteria are recommended for diagnosis of either severe or non-severe malnutrition. Malnutrition Related to Morbid Obesity Malnutrition related to morbid obesity No Intervention/Recommendation Comments 1. Continue with regular diet as ordered. 2. Monitor PO intake, wt, labs and skin integrity 3. F/U as low risk in 7 days, 04/27 Expected Outcomes/Goals Expected Outcomes/Goals 1. PO intake to meet at least 75% of nutritional needs. 2. Wt stability, skin to remain intact, labs to approach WNL.
[2018-04-22] MEDS: Triamcinolone Acetonide 0.1% Cream 15 gm TP SCH ×2 (11:17→16:46)
[2018-04-23] MEDS: Lactobacillus Rhamnosus GG 15 Billion CFU CAP.SPRINK PO SCH (09:11)
[2018-04-23] MEDS: Atorvastatin Calcium 10 MG TAB PO SCH (09:11)
[2018-04-23] MEDS: Hydrocodone/APAP 5mg/325mg Tab PO PRN (09:24)
[2018-04-23] MEDS: Triamcinolone Acetonide 0.1% Cream 15 gm TP SCH ×2 (09:24→16:15)
--- NOTE | 2018-04-23 10:17 | General Progress Note ---
Subjective - Review of Systems Service Date: 04/23/18 Subjective: Patient is complaining of rash in face. Objective - Results Result Diagrams: 04/17/18 06:10 04/17/18 06:10 Recent Labs: Laboratory Last Values WBC 8.6 Th/cmm (4.8-10.8) 04/17/18 06:10 RBC 4.49 Mil/cmm (3.80-5.20) 04/17/18 06:10 Hgb 12.9 gm/dL (12-16) 04/17/18 06:10 Hct 38.3 % (41.0-60) L 04/17/18 06:10 MCV 85.3 fl (81-100) 04/17/18 06:10 MCH 28.7 pg (27.0-31.0) 04/17/18 06:10 MCHC Differential 33.7 pg (28.0-36.0) 04/17/18 06:10 RDW 12.3 % (11.5-20.0) 04/17/18 06:10 Plt Count 213 Th/cmm (150-400) 04/17/18 06:10 MPV 9.8 fl 04/17/18 06:10 Neutrophils % 56.8 % (40.0-80.0) 04/17/18 06:10 Lymphocytes % 32.3 % (20.0-50.0) 04/17/18 06:10 Monocytes % 6.5 % (2.0-10.0) 04/17/18 06:10 Eosinophils % 3.5 % (0.0-5.0) 04/17/18 06:10 Basophils % 0.9 % (0.0-2.0) 04/17/18 06:10 Sodium 137 mEq/L (136-145) 04/17/18 06:10 Potassium 4.4 mEq/L (3.5-5.1) 04/17/18 06:10 Chloride 106 mEq/L (98-107) 04/17/18 06:10 Carbon Dioxide 24.1 mEq/L (21.0-31.0) 04/17/18 06:10 Anion Gap 11.3 (7.0-16.0) 04/17/18 06:10 BUN 18 mg/dL (7-25) 04/17/18 06:10 Creatinine 0.9 mg/dL (0.6-1.2) 04/17/18 06:10 Est GFR ( Amer) > 60.0 ml/min (>90) 04/17/18 06:10 Est GFR (Non-Af Amer) > 60.0 ml/min 04/17/18 06:10 BUN/Creatinine Ratio 20.0 04/17/18 06:10 Glucose 88 mg/dL (70-105) 04/17/18 06:10 POC Glucose 119 MG/DL (70-105) H 04/15/18 17:10 Calcium 9.9 mg/dL (8.6-10.3) 04/17/18 06:10 Total Bilirubin 0.7 mg/dL (0.3-1.0) 04/17/18 06:10 AST 10 U/L (13-39) L 04/17/18 06:10 ALT 9 U/L (7-52) 04/17/18 06:10 Alkaline Phosphatase 81 U/L (34-104) 04/17/18 06:10 Total Protein 6.3 gm/dL (6.0-8.3) 04/17/18 06:10 Albumin 4.0 gm/dL (3.7-5.3) 04/17/18 06:10 Globulin 2.3 gm/dL 04/17/18 06:10 Albumin/Globulin Ratio 1.7 (1.0-1.8) 04/17/18 06:10 Triglycerides 317 mg/dL (<150) H 04/15/18 19:45 Cholesterol 206 mg/dL (<200) H 04/15/18 19:45 LDL Cholesterol Direct 121 mg/dL (75-193) 04/15/18 19:45 HDL Cholesterol 39 mg/dL (23-92) 04/15/18 19:45 TSH 0.76 uIU/ml (0.34-5.60) 04/17/18 06:10 - Physical Exam Vitals and I&O: Vital Signs Temp 97 F 04/23/18 05:49 Pulse 62 04/23/18 05:49 Resp 18 04/23/18 05:49 BP 108/69 04/23/18 05:49 Pulse Ox 99 04/23/18 05:49 Active Medications: Current Medications Acetaminophen/Hydrocodone Bitart ([place] 5mg/325mg) 1 tab PO Q4HR PRN PRN Reason: Pain (Severe) Stop: 06/15/18 11:57 Last Admin: 04/23/18 09:24 Dose: 1 tab Alprazolam (Xanax) 1 mg PO DAILY MARCELINA; Protocol Stop: 06/17/18 08:59 Last Admin: 04/23/18 09:11 Dose: 1 mg Alprazolam (Xanax) 0.5 mg PO 1700 MARCELINA; Protocol Stop: 06/18/18 16:59 Last Admin: 04/22/18 16:45 Dose: 0.5 mg Atorvastatin Calcium (Lipitor) 10 mg PO DAILY MARECLINA; Protocol Stop: 06/19/18 08:59 Last Admin: 04/23/18 09:11 Dose: 10 mg Fluoxetine HCl (Prozac) 40 mg PO DAILY MARCELINA; Protocol Stop: 06/20/18 10:29 Last Admin: 04/23/18 09:11 Dose: 40 mg Gabapentin (Neurontin) 300 mg PO BID MARCELINA Stop: 06/15/18 16:59 Last Admin: 04/23/18 09:11 Dose: 300 mg Lactobacillus Rhamnosus (Culturelle 15b) 1 each PO DAILY MARCELINA Stop: 06/16/18 13:59 Last Admin: 04/23/18 09:11 Dose: 1 each Lamotrigine (Lamictal) 25 mg PO DAILY [facility]; Protocol Stop: 06/20/18 08:59 Last Admin: 04/23/18 09:11 Dose: 25 mg [place] Carbonate (Eskalith) 300 mg PO BID MARCELINA; Protocol Stop: 06/17/18 16:59 Last Admin: 04/23/18 09:11 Dose: 300 mg Miscellaneous (Probiotic Screen) 1 ea MC PRN PRN PRN Reason: PROTOCOL Stop: 06/16/18 13:08 Quetiapine Fumarate 100 mg/ (Quetiapine Fumarate 50 mg) 150 mg PO HS MARCELINA Stop: 06/19/18 20:59 Last Admin: 04/22/18 20:34 Dose: 150 mg Silver Sulfadiazine (Ssd) 1 appl TP BID MARCELINA; Protocol Stop: 06/15/18 08:59 Last Admin: 04/23/18 09:24 Dose: 1 appl Trazodone HCl (Desyrel) 150 mg PO HS MARCELINA; Protocol Stop: 06/14/18 20:59 Last Admin: 04/22/18 20:35 Dose: 150 mg Triamcinolone Acetonide (Kenalog 0.1%) 1 appl TP BID [facility] Stop: 06/21/18 10:59 Last Admin: 04/23/18 09:24 Dose: 1 appl General: Alert, No acute distress, Other (Confused) HEENT: Atraumatic Neck: Supple Cardiovascular: Regular rate Lungs: Clear to auscultation Abdomen: Bowel sounds, Soft Extremities: Other (No edema) Neurological: Normal gait Skin: Other (Redness of face.) Psych/Mental Status: Other (Confused, not oriented) Assessment/Plan - Assessment Assessment: Patient is awake, alert, calm, in no acute distress. Dx: Contact dermatitis, Depression, Bipolar disorder, Hydrocephalus, Periphereal neuropathy. - Plan Plan: Patient follow by psychiatry. Wound care in left arm, will continue with SNF meds. Triamcinolone cream is added to treatment, soap will be change to Neutral soap. Will continue to monitor. Nutritional Asmnt/Malnutr-PDOC - Dietary Evaluation Malnutrition Findings (Please click <Entered> for more info): Nutritional Asmnt/Malnutrition Start: 04/20/18 15: 13 Text: Status: Complete Freq: Protocol: Document 04/20/18 15:13 LCHENG (Rec: 04/20/18 15:28 [email or web address]) Nutritional Asmnt/Malnutrition Patient General Information Nutritional Screening Low Risk Diagnosis psychosis Pertinent Medical Hx/Surgical Hx addictions, bipolar, normal presure hydrocephalus, peripheal neuropathy Subjective Information Pt seen sitting on bed at time of visit, awake and alert. pt stated food was fine, no question or concern. Per EMR, PO intake 100%. Current Diet Order/ Nutrition Support regular Pertinent Medications lipitor, culturelle Pertinent Labs 04/17 nutrition labs WNL Nutritional Hx/Data Height 1.73 m Height (Calculated Centimeters) 172.7 Current Weight (lbs) 76.204 kg Weight (Calculated Kilograms) 76.2 Weight (Calculated Grams) 73933.5 [place] Body Weight 140 Body Mass Index (BMI) 25.5 Weight Status Overweight GI Symptoms GI Symptoms None Last BM 04/17 x 2 Difficult in: None Skin Integrity/Comment: no skin problem noted per EMR Current %PO Good (75-100%) Estimated Nutritional Goals BEE in Kcals: Using Current wt Calories/Kcals/Kg 23-27 Kcals Calculated 7181-3333 Protein: Using Current wt Protein g/k.8-1 Protein Calculated 61-76 Fluid: ml 1748-2051ml (1ml/kcal) Nutritional Problem No current Nutrition Prob Problem N/A Malnutrition Alert Is there a minimum of two criteria No selected? Query Text:Check all the applicable criteria. A minimum of two criteria are recommended for diagnosis of either severe or non-severe malnutrition. Malnutrition Related to Morbid Obesity Malnutrition related to morbid obesity No Intervention/Recommendation Comments 1. Continue with regular diet as ordered. 2. Monitor PO intake, wt, labs and skin integrity 3. F/U as low risk in 7 days, 04/27 Expected Outcomes/Goals Expected Outcomes/Goals 1. PO intake to meet at least 75% of nutritional needs. 2. Wt stability, skin to remain intact, labs to approach WNL.
--- NOTE | 2018-04-23 17:10 | Progress Notes ---
DATE: SUBJECTIVE: The patient was seen and evaluated. The patient's chart reviewed. This is Dr. Cameron covering for Dr. Macias. IDENTIFYING DATA: She is a 63-year-old female, who has been noted that the patient continues to be overwhelmed and redirectable, but depressed and unable to make a safe plan. Yesterday, the patient was started on Lamictal. Today on [id number] evaluation, the patient denies any side effects of medications and noted to be still sad and depressed with pending lithium levels. CURRENT MEDICATIONS: She is on Xanax as needed, Prozac 40 mg, gabapentin 300 mg p.o. b.i.d. with Lamictal 25 mg daily, and lithium at 300 mg p.o. b.i.d. with Seroquel. ASSESSMENT AND PLAN: The patient is a 63-year-old female with a history of bipolar, current episode of depression, who continues to be distraught, overwhelmed, and severely depressed. We will continue with the current medication regimen and augmentation with Lamictal to target the patient's symptoms. JOB# [id number]
--- NOTE | 2018-04-24 01:37 | Progress Notes ---
DATE: 04/23/2018 SUBJECTIVE: The patient was seen and evaluated. No complications, side effects of medication noted by the patient. The patient continues to report distraught, overwhelmed. MENTAL STATUS EXAMINATION: Still disengaged and withdrawn. ASSESSMENT AND PLAN: The patient is a 63-year-old female presented, still depressed, melancholic, withdrawn, and disengaged, unable to formulate a plan outside the structural environment to take secondary to the patient's severe depression and underlying bipolar disorder. JOB# [id number]
[2018-04-24] MEDS: Hydrocodone/APAP 5mg/325mg Tab PO PRN ×2 (04:25→13:45)
--- NOTE | 2018-04-24 08:53 | General Progress Note ---
Subjective - Review of Systems Service Date: 04/24/18 Subjective: Patient is awake, alert, calm. Objective - Results Result Diagrams: 04/17/18 06:10 04/17/18 06:10 Recent Labs: Laboratory Last Values WBC 8.6 Th/cmm (4.8-10.8) 04/17/18 06:10 RBC 4.49 Mil/cmm (3.80-5.20) 04/17/18 06:10 Hgb 12.9 gm/dL (12-16) 04/17/18 06:10 Hct 38.3 % (41.0-60) L 04/17/18 06:10 MCV 85.3 fl (81-100) 04/17/18 06:10 MCH 28.7 pg (27.0-31.0) 04/17/18 06:10 MCHC Differential 33.7 pg (28.0-36.0) 04/17/18 06:10 RDW 12.3 % (11.5-20.0) 04/17/18 06:10 Plt Count 213 Th/cmm (150-400) 04/17/18 06:10 MPV 9.8 fl 04/17/18 06:10 Neutrophils % 56.8 % (40.0-80.0) 04/17/18 06:10 Lymphocytes % 32.3 % (20.0-50.0) 04/17/18 06:10 Monocytes % 6.5 % (2.0-10.0) 04/17/18 06:10 Eosinophils % 3.5 % (0.0-5.0) 04/17/18 06:10 Basophils % 0.9 % (0.0-2.0) 04/17/18 06:10 Sodium 137 mEq/L (136-145) 04/17/18 06:10 Potassium 4.4 mEq/L (3.5-5.1) 04/17/18 06:10 Chloride 106 mEq/L (98-107) 04/17/18 06:10 Carbon Dioxide 24.1 mEq/L (21.0-31.0) 04/17/18 06:10 Anion Gap 11.3 (7.0-16.0) 04/17/18 06:10 BUN 18 mg/dL (7-25) 04/17/18 06:10 Creatinine 0.9 mg/dL (0.6-1.2) 04/17/18 06:10 Est GFR ( Amer) > 60.0 ml/min (>90) 04/17/18 06:10 Est GFR (Non-Af Amer) > 60.0 ml/min 04/17/18 06:10 BUN/Creatinine Ratio 20.0 04/17/18 06:10 Glucose 88 mg/dL (70-105) 04/17/18 06:10 POC Glucose 119 MG/DL (70-105) H 04/15/18 17:10 Calcium 9.9 mg/dL (8.6-10.3) 04/17/18 06:10 Total Bilirubin 0.7 mg/dL (0.3-1.0) 04/17/18 06:10 AST 10 U/L (13-39) L 04/17/18 06:10 ALT 9 U/L (7-52) 04/17/18 06:10 Alkaline Phosphatase 81 U/L (34-104) 04/17/18 06:10 Total Protein 6.3 gm/dL (6.0-8.3) 04/17/18 06:10 Albumin 4.0 gm/dL (3.7-5.3) 04/17/18 06:10 Globulin 2.3 gm/dL 04/17/18 06:10 Albumin/Globulin Ratio 1.7 (1.0-1.8) 04/17/18 06:10 Triglycerides 317 mg/dL (<150) H 04/15/18 19:45 Cholesterol 206 mg/dL (<200) H 04/15/18 19:45 LDL Cholesterol Direct 121 mg/dL (75-193) 04/15/18 19:45 HDL Cholesterol 39 mg/dL (23-92) 04/15/18 19:45 TSH 0.76 uIU/ml (0.34-5.60) 04/17/18 06:10 - Physical Exam Vitals and I&O: Vital Signs Temp 97.9 F 04/24/18 05:37 Pulse 54 04/24/18 05:37 Resp 18 04/24/18 05:37 BP 109/62 04/24/18 05:37 Pulse Ox 95 04/24/18 05:37 Intake & Output 04/23/18 04/24/1818 18:59 06:59 18:59 Intake Total 1600 480 Balance 1600 480 Intake: Oral 1600 480 Other: # Voids 3 2 # Bowel Movements 0 Active Medications: Current Medications Acetaminophen/Hydrocodone Bitart ([place] 5mg/325mg) 1 tab PO Q4HR PRN PRN Reason: Pain (Severe) Stop: 06/15/18 11:57 Last Admin: 04/24/18 04:25 Dose: 1 tab Alprazolam (Xanax) 1 mg PO DAILY MARCELINA; Protocol Stop: 06/17/18 08:59 Last Admin: 04/23/18 09:11 Dose: 1 mg Alprazolam (Xanax) 0.5 mg PO 1700 MARCELINA; Protocol Stop: 06/18/18 16:59 Last Admin: 04/23/18 16:14 Dose: 0.5 mg Atorvastatin Calcium (Lipitor) 10 mg PO DAILY M[facility]ELINA; Protocol Stop: 06/19/18 08:59 Last Admin: 04/23/18 09:11 Dose: 10 mg Fluoxetine HCl (Prozac) 40 mg PO DAILY M[facility]ELINA; Protocol Stop: 06/20/18 10:29 Last Admin: 04/23/18 09:11 Dose: 40 mg Gabapentin (Neurontin) 300 mg PO BID M[facility]ELINA Stop: 06/15/18 16:59 Last Admin: 04/23/18 16:13 Dose: 300 mg Lactobacillus Rhamnosus (Culturelle 15b) 1 each PO DAILY M[facility]ELINA Stop: 06/16/18 13:59 Last Admin: 04/23/18 09:11 Dose: 1 each Lamotrigine (Lamictal) 25 mg PO DAILY MARCELINA; Protocol Stop: 06/20/18 08:59 Last Admin: 04/23/18 09:11 Dose: 25 mg [place] Carbonate (Eskalith) 300 mg PO BID MARCELINA; Protocol Stop: 06/17/18 16:59 Last Admin: 04/23/18 16:14 Dose: 300 mg Miscellaneous (Probiotic Screen) 1 ea MC PRN PRN PRN Reason: PROTOCOL Stop: 06/16/18 13:08 Quetiapine Fumarate 100 mg/ (Quetiapine Fumarate 50 mg) 150 mg PO HS MARCELINA Stop: 06/19/18 20:59 Last Admin: 04/23/18 21:16 Dose: 150 mg Silver Sulfadiazine (Ssd) 1 appl TP BID MARCELINA; Protocol Stop: 06/15/18 08:59 Last Admin: 04/23/18 16:14 Dose: 1 appl Trazodone HCl (Desyrel) 150 mg PO HS MARCELINA; Protocol Stop: 06/14/18 20:59 Last Admin: 04/23/18 21:15 Dose: 150 mg Triamcinolone Acetonide (Kenalog 0.1%) 1 appl TP BID MARCELINA Stop: 06/21/18 10:59 Last Admin: 04/23/18 16:15 Dose: 1 appl General: Alert, No acute distress, Other (Confused) HEENT: Atraumatic Neck: Supple Cardiovascular: Regular rate Lungs: Clear to auscultation Abdomen: Bowel sounds, Soft Extremities: Other (No edema) Neurological: Normal gait Skin: Other (Redness of face.) Psych/Mental Status: Other (Confused, not oriented) Assessment/Plan - Assessment Assessment: Patient is awake, alert, calm, in no acute distress. Dx: Contact dermatitis, Depression, Bipolar disorder, Hydrocephalus, Periphereal neuropathy. - Plan Plan: Patient follow by psychiatry. Wound care in left arm, will continue with SNF meds. Triamcinolone cream is added to treatment, soap will be change to Neutral soap. Will continue to monitor. Nutritional Asmnt/Malnutr-PDOC - Dietary Evaluation Malnutrition Findings (Please click <Entered> for more info): Nutritional Asmnt/Malnutrition Start: 04/20/18 15: 13 Text: Status: Complete Freq: Protocol: Document 04/20/18 15:13 [email or web address] (Rec: 04/20/18 15:28 ELICIAG [email or web address]) Nutritional Asmnt/Malnutrition Patient General Information Nutritional Screening Low Risk Diagnosis psychosis Pertinent Medical Hx/Surgical Hx addictions, bipolar, normal presure hydrocephalus, peripheal neuropathy Subjective Information Pt seen sitting on bed at time of visit, awake and alert. pt stated food was fine, no question or concern. Per EMR, PO intake 100%. Current Diet Order/ Nutrition Support regular Pertinent Medications lipitor, culturelle Pertinent Labs 04/17 nutrition labs WNL Nutritional Hx/Data Height 1.73 m Height (Calculated Centimeters) 172.7 Current Weight (lbs) 76.204 kg Weight (Calculated Kilograms) 76.2 Weight (Calculated Grams) 39227.5 [place] Body Weight 140 Body Mass Index (BMI) 25.5 Weight Status Overweight GI Symptoms GI Symptoms None Last BM 04/17 x 2 Difficult in: None Skin Integrity/Comment: no skin problem noted per EMR Current %PO Good (75-100%) Estimated Nutritional Goals BEE in Kcals: Using Current wt Calories/Kcals/Kg 23-27 Kcals Calculated 5412-6041 Protein: Using Current wt Protein g/k.8-1 Protein Calculated 61-76 Fluid: ml 1748-2052ml (1ml/kcal) Nutritional Problem No current Nutrition Prob Problem N/A Malnutrition Alert Is there a minimum of two criteria No selected? Query Text:Check all the applicable criteria. A minimum of two criteria are recommended for diagnosis of either severe or non-severe malnutrition. Malnutrition Related to Morbid Obesity Malnutrition related to morbid obesity No Intervention/Recommendation Comments 1. Continue with regular diet as ordered. 2. Monitor PO intake, wt, labs and skin integrity 3. F/U as low risk in 7 days, 04/27 Expected Outcomes/Goals Expected Outcomes/Goals 1. PO intake to meet at least 75% of nutritional needs. 2. Wt stability, skin to remain intact, labs to approach WNL.
[2018-04-24] MEDS: Atorvastatin Calcium 10 MG TAB PO SCH (09:10)
[2018-04-24] MEDS: Lactobacillus Rhamnosus GG 15 Billion CFU CAP.SPRINK PO SCH (09:10)
[2018-04-24] MEDS: Triamcinolone Acetonide 0.1% Cream 15 gm TP SCH ×2 (09:10→16:48)
--- NOTE | 2018-04-24 20:55 | Progress Notes ---
DATE: 04/24/2018 SUBJECTIVE: Case was discussed with staff of the patient, reviewed records. She reports she is happy with the medication. She has peripheral neuropathy and she reports that there is a test she will need to be doing soon. She reports her sleep and appetite are improving. She continues to be easily agitated. No side effects with the medication, no sedation, no nausea, and no extrapyramidal symptoms. Her lab work showed hemoglobin and hematocrit is low, the rest are within normal range. Chemistry panel with high blood sugar, the rest are within normal range. Lipid panel with high triglycerides and high cholesterol. TSH is within normal range. We will continue to work with the patient in group therapy, milieu therapy, and adjust the medication as needed. JOB# [id number]
--- NOTE | 2018-04-25 06:38 | General Progress Note ---
Subjective - Review of Systems Service Date: 04/25/18 Subjective: Patient is awake, alert, calm. Objective - Results Result Diagrams: 04/17/18 06:10 04/17/18 06:10 Recent Labs: Laboratory Last Values WBC 8.6 Th/cmm (4.8-10.8) 04/17/18 06:10 RBC 4.49 Mil/cmm (3.80-5.20) 04/17/18 06:10 Hgb 12.9 gm/dL (12-16) 04/17/18 06:10 Hct 38.3 % (41.0-60) L 04/17/18 06:10 MCV 85.3 fl (81-100) 04/17/18 06:10 MCH 28.7 pg (27.0-31.0) 04/17/18 06:10 MCHC Differential 33.7 pg (28.0-36.0) 04/17/18 06:10 RDW 12.3 % (11.5-20.0) 04/17/18 06:10 Plt Count 213 Th/cmm (150-400) 04/17/18 06:10 MPV 9.8 fl 04/17/18 06:10 Neutrophils % 56.8 % (40.0-80.0) 04/17/18 06:10 Lymphocytes % 32.3 % (20.0-50.0) 04/17/18 06:10 Monocytes % 6.5 % (2.0-10.0) 04/17/18 06:10 Eosinophils % 3.5 % (0.0-5.0) 04/17/18 06:10 Basophils % 0.9 % (0.0-2.0) 04/17/18 06:10 Sodium 137 mEq/L (136-145) 04/17/18 06:10 Potassium 4.4 mEq/L (3.5-5.1) 04/17/18 06:10 Chloride 106 mEq/L (98-107) 04/17/18 06:10 Carbon Dioxide 24.1 mEq/L (21.0-31.0) 04/17/18 06:10 Anion Gap 11.3 (7.0-16.0) 04/17/18 06:10 BUN 18 mg/dL (7-25) 04/17/18 06:10 Creatinine 0.9 mg/dL (0.6-1.2) 04/17/18 06:10 Est GFR ( Amer) > 60.0 ml/min (>90) 04/17/18 06:10 Est GFR (Non-Af Amer) > 60.0 ml/min 04/17/18 06:10 BUN/Creatinine Ratio 20.0 04/17/18 06:10 Glucose 88 mg/dL (70-105) 04/17/18 06:10 POC Glucose 119 MG/DL (70-105) H 04/15/18 17:10 Calcium 9.9 mg/dL (8.6-10.3) 04/17/18 06:10 Total Bilirubin 0.7 mg/dL (0.3-1.0) 04/17/18 06:10 AST 10 U/L (13-39) L 04/17/18 06:10 ALT 9 U/L (7-52) 04/17/18 06:10 Alkaline Phosphatase 81 U/L (34-104) 04/17/18 06:10 Total Protein 6.3 gm/dL (6.0-8.3) 04/17/18 06:10 Albumin 4.0 gm/dL (3.7-5.3) 04/17/18 06:10 Globulin 2.3 gm/dL 04/17/18 06:10 Albumin/Globulin Ratio 1.7 (1.0-1.8) 04/17/18 06:10 Triglycerides 317 mg/dL (<150) H 04/15/18 19:45 Cholesterol 206 mg/dL (<200) H 04/15/18 19:45 LDL Cholesterol Direct 121 mg/dL (75-193) 04/15/18 19:45 HDL Cholesterol 39 mg/dL (23-92) 04/15/18 19:45 TSH 0.76 uIU/ml (0.34-5.60) 04/17/18 06:10 [place] 0.91 mmol/L (0.5-1.0) 04/24/18 12:55 - Physical Exam Vitals and I&O: Vital Signs Temp 97.4 F 04/25/18 04:39 Pulse 76 04/25/18 04:39 Resp 18 04/25/18 04:39 BP 120/88 04/25/18 04:39 Pulse Ox 96 09/18/18 04:39 Intake & Output 04/24/18 04/24/18 04/25/18 06:59 18:59 06:59 Intake Total 480 1500 480 Balance 480 1500 480 Intake: Oral 480 1500 480 Other: # Voids 2 4 2 # Bowel Movements 0 Active Medications: Current Medications Acetaminophen/Hydrocodone Bitart ([place] 5mg/325mg) 1 tab PO Q4HR PRN PRN Reason: Pain (Severe) Stop: 06/15/18 11:57 Last Admin: 04/24/18 13:45 Dose: 1 tab Alprazolam (Xanax) 1 mg PO DAILY MARCELINA; Protocol Stop: 06/17/18 08:59 Last Admin: 04/24/18 09:08 Dose: 1 mg Alprazolam (Xanax) 0.5 mg PO 1700 MARCELINA; Protocol Stop: 06/18/18 16:59 Last Admin: 04/24/18 16:48 Dose: 0.5 mg Atorvastatin Calcium (Lipitor) 10 mg PO DAILY MARCELINA; Protocol Stop: 06/19/18 08:59 Last Admin: 04/24/18 09:10 Dose: 10 mg Fluoxetine HCl (Prozac) 40 mg PO DAILY MARCELINA; Protocol Stop: 06/20/18 10:29 Last Admin: 04/24/18 09:08 Dose: 40 mg Gabapentin (Neurontin) 300 mg PO BID MARCELINA Stop: 06/15/18 16:59 Last Admin: 04/24/18 16:48 Dose: 300 mg Lactobacillus Rhamnosus (Culturelle 15b) 1 each PO DAILY MARCELINA Stop: 06/16/18 13:59 Last Admin: 04/24/18 09:10 Dose: 1 each Lamotrigine (Lamictal) 25 mg PO DAILY [facility]; Protocol Stop: 06/20/18 08:59 Last Admin: 04/24/18 09:08 Dose: 25 mg [place] Carbonate (Eskalith) 300 mg PO BID MARCELINA; Protocol Stop: 06/17/18 16:59 Last Admin: 04/24/18 16:48 Dose: 300 mg Miscellaneous (Probiotic Screen) 1 ea MC PRN PRN PRN Reason: PROTOCOL Stop: 06/16/18 13:08 Quetiapine Fumarate 100 mg/ (Quetiapine Fumarate 50 mg) 150 mg PO HS MARCELINA Stop: 06/19/18 20:59 Last Admin: 04/24/18 20:31 Dose: 150 mg Silver Sulfadiazine (Ssd) 1 appl TP BID MARCELINA; Protocol Stop: 06/15/18 08:59 Last Admin: 04/24/18 16:48 Dose: 1 appl Trazodone HCl (Desyrel) 150 mg PO HS MARCELINA; Protocol Stop: 06/14/18 20:59 Last Admin: 04/24/18 20:32 Dose: 150 mg Triamcinolone Acetonide (Kenalog 0.1%) 1 appl TP BID MARCELINA Stop: 06/21/18 10:59 Last Admin: 04/24/18 16:48 Dose: 1 appl General: Alert, No acute distress, Other (Confused) HEENT: Atraumatic Neck: Supple Cardiovascular: Regular rate Lungs: Clear to auscultation Abdomen: Bowel sounds, Soft Extremities: Other (No edema) Neurological: Normal gait Skin: Other (Redness of face.) Psych/Mental Status: Other (Confused, not oriented) Assessment/Plan - Assessment Assessment: Patient is awake, alert, calm, in no acute distress. Dx: Contact dermatitis, Depression, Bipolar disorder, Hydrocephalus, Periphereal neuropathy. - Plan Plan: Patient follow by psychiatry. Wound care in left arm, will continue with SNF meds. Triamcinolone cream is added to treatment, soap will be change to Neutral soap. Will continue to monitor. Nutritional Asmnt/Malnutr-PDOC - Dietary Evaluation Malnutrition Findings (Please click <Entered> for more info): Nutritional Asmnt/Malnutrition Start: 04/20/18 15: 13 Text: Status: Complete Freq: Protocol: Document 04/20/18 15:13 HENG (Rec: 04/20/18 15:28 [facility] [email or web address]) Nutritional Asmnt/Malnutrition Patient General Information Nutritional Screening Low Risk Diagnosis psychosis Pertinent Medical Hx/Surgical Hx addictions, bipolar, normal presure hydrocephalus, peripheal neuropathy Subjective Information Pt seen sitting on bed at time of visit, awake and alert. pt stated food was fine, no question or concern. Per EMR, PO intake 100%. Current Diet Order/ Nutrition Support regular Pertinent Medications lipitor, culturelle Pertinent Labs 04/17 nutrition labs WNL Nutritional Hx/Data Height 1.73 m Height (Calculated Centimeters) 172.7 Current Weight (lbs) 76.204 kg Weight (Calculated Kilograms) 76.2 Weight (Calculated Grams) 33964.5 [place] Body Weight 140 Body Mass Index (BMI) 25.5 Weight Status Overweight GI Symptoms GI Symptoms None Last BM 04/17 x 2 Difficult in: None Skin Integrity/Comment: no skin problem noted per EMR Current %PO Good (75-100%) Estimated Nutritional Goals BEE in Kcals: Using Current wt Calories/Kcals/Kg 23-27 Kcals Calculated 8714-4797 Protein: Using Current wt Protein g/k.8-1 Protein Calculated 61-76 Fluid: ml 1748-2052ml (1ml/kcal) Nutritional Problem No current Nutrition Prob Problem N/A Malnutrition Alert Is there a minimum of two criteria No selected? Query Text:Check all the applicable criteria. A minimum of two criteria are recommended for diagnosis of either severe or non-severe malnutrition. Malnutrition Related to Morbid Obesity Malnutrition related to morbid obesity No Intervention/Recommendation Comments 1. Continue with regular diet as ordered. 2. Monitor PO intake, wt, labs and skin integrity 3. F/U as low risk in 7 days, 04/27 Expected Outcomes/Goals Expected Outcomes/Goals 1. PO intake to meet at least 75% of nutritional needs. 2. Wt stability, skin to remain intact, labs to approach WNL.
[2018-04-25] MEDS: Lactobacillus Rhamnosus GG 15 Billion CFU CAP.SPRINK PO SCH (09:02)
[2018-04-25] MEDS: Atorvastatin Calcium 10 MG TAB PO SCH (09:03)
[2018-04-25] MEDS: Triamcinolone Acetonide 0.1% Cream 15 gm TP SCH ×2 (09:03→17:14)
--- NOTE | 2018-04-25 15:54 | Progress Notes ---
DATE: 04/25/2018 Case was discussed with staff of the patient. The pillowcase cleaner called the assisted, they do not have any scheduled tests for her. She suffers with a lot of neuropathy. She is sleeping well, eating well. She denies any current intent to harm herself or anybody. However, she is still overwhelmed, depressed, continues to be unable to sleep because of the pain. I will be adding a Neurology consult with her doctor, Dr. Clark. I told the need to about that to do it. No side effects with the medication, no sedation, no nausea, no extrapyramidal symptoms and I will be increasing her Neurontin dose to 400 mg 4 times a day. I will continue to work with the patient in group therapy, milieu therapy, adjust the medication as needed. JOB# [id number]
[2018-04-26] MEDS: Lactobacillus Rhamnosus GG 15 Billion CFU CAP.SPRINK PO SCH (08:00)
[2018-04-26] MEDS: Atorvastatin Calcium 10 MG TAB PO SCH (08:00)
[2018-04-26] MEDS: Triamcinolone Acetonide 0.1% Cream 15 gm TP SCH ×2 (09:03→18:00)
--- NOTE | 2018-04-26 09:09 | General Progress Note ---
Subjective - Review of Systems Service Date: 04/26/18 Subjective: Patient is awake, alert, calm. Objective - Results Result Diagrams: 04/17/18 06:10 04/17/18 06:10 Recent Labs: Laboratory Last Values WBC 8.6 Th/cmm (4.8-10.8) 04/17/18 06:10 RBC 4.49 Mil/cmm (3.80-5.20) 04/17/18 06:10 Hgb 12.9 gm/dL (12-16) 04/17/18 06:10 Hct 38.3 % (41.0-60) L 04/17/18 06:10 MCV 85.3 fl (81-100) 04/17/18 06:10 MCH 28.7 pg (27.0-31.0) 04/17/18 06:10 MCHC Differential 33.7 pg (28.0-36.0) 04/17/18 06:10 RDW 12.3 % (11.5-20.0) 04/17/18 06:10 Plt Count 213 Th/cmm (150-400) 04/17/18 06:10 MPV 9.8 fl 04/17/18 06:10 Neutrophils % 56.8 % (40.0-80.0) 04/17/18 06:10 Lymphocytes % 32.3 % (20.0-50.0) 04/17/18 06:10 Monocytes % 6.5 % (2.0-10.0) 04/17/18 06:10 Eosinophils % 3.5 % (0.0-5.0) 04/17/18 06:10 Basophils % 0.9 % (0.0-2.0) 04/17/18 06:10 Sodium 137 mEq/L (136-145) 04/17/18 06:10 Potassium 4.4 mEq/L (3.5-5.1) 04/17/18 06:10 Chloride 106 mEq/L (98-107) 04/17/18 06:10 Carbon Dioxide 24.1 mEq/L (21.0-31.0) 04/17/18 06:10 Anion Gap 11.3 (7.0-16.0) 04/17/18 06:10 BUN 18 mg/dL (7-25) 04/17/18 06:10 Creatinine 0.9 mg/dL (0.6-1.2) 04/17/18 06:10 Est GFR ( Amer) > 60.0 ml/min (>90) 04/17/18 06:10 Est GFR (Non-Af Amer) > 60.0 ml/min 04/17/18 06:10 BUN/Creatinine Ratio 20.0 04/17/18 06:10 Glucose 88 mg/dL (70-105) 04/17/18 06:10 POC Glucose 119 MG/DL (70-105) H 04/15/18 17:10 Calcium 9.9 mg/dL (8.6-10.3) 04/17/18 06:10 Total Bilirubin 0.7 mg/dL (0.3-1.0) 04/17/18 06:10 AST 10 U/L (13-39) L 04/17/18 06:10 ALT 9 U/L (7-52) 04/17/18 06:10 Alkaline Phosphatase 81 U/L (34-104) 04/17/18 06:10 Total Protein 6.3 gm/dL (6.0-8.3) 04/17/18 06:10 Albumin 4.0 gm/dL (3.7-5.3) 04/17/18 06:10 Globulin 2.3 gm/dL 04/17/18 06:10 Albumin/Globulin Ratio 1.7 (1.0-1.8) 04/17/18 06:10 Triglycerides 317 mg/dL (<150) H 04/15/18 19:45 Cholesterol 206 mg/dL (<200) H 04/15/18 19:45 LDL Cholesterol Direct 121 mg/dL (75-193) 04/15/18 19:45 HDL Cholesterol 39 mg/dL (23-92) 04/15/18 19:45 TSH 0.76 uIU/ml (0.34-5.60) 04/17/18 06:10 [place] 0.91 mmol/L (0.5-1.0) 04/24/18 12:55 - Physical Exam Vitals and I&O: Vital Signs Temp 98.5 F 04/26/18 06:41 Pulse 94 04/26/18 06:41 Resp 19 04/26/18 06:41 BP 120/73 04/26/18 06:41 Pulse Ox 95 09/18/18 22:00 Intake & Output 04/25/18 04/26/18 04/26/18 18:59 06:59 18:59 Intake Total 500 Balance 500 Intake: Oral 500 Other: # Voids 4 # Bowel Movements 0 Active Medications: Current Medications Acetaminophen/Hydrocodone Bitart ([place] 5mg/325mg) 1 tab PO Q4HR PRN PRN Reason: Pain (Severe) Stop: 06/15/18 11:57 Last Admin: 04/24/18 13:45 Dose: 1 tab Alprazolam (Xanax) 1 mg PO DAILY MARCELINA; Protocol Stop: 06/17/18 08:59 Last Admin: 04/26/18 07:59 Dose: 1 mg Alprazolam (Xanax) 0.5 mg PO 1700 MARCELINA; Protocol Stop: 06/18/18 16:59 Last Admin: 04/25/18 17:13 Dose: 0.5 mg Atorvastatin Calcium (Lipitor) 10 mg PO DAILY MARCELINA; Protocol Stop: 06/19/18 08:59 Last Admin: 04/26/18 08:00 Dose: 10 mg Fluoxetine HCl (Prozac) 40 mg PO DAILY MARCELINA; Protocol Stop: 06/20/18 10:29 Last Admin: 04/26/18 08:00 Dose: 40 mg Gabapentin (Neurontin) 400 mg PO QID MARCELINA Stop: 06/24/18 12:59 Last Admin: 04/26/18 08:00 Dose: 400 mg Lactobacillus Rhamnosus (Culturelle 15b) 1 each PO DAILY MARCELINA Stop: 06/16/18 13:59 Last Admin: 04/26/18 08:00 Dose: 1 each Lamotrigine (Lamictal) 25 mg PO DAILY MARCELINA; Protocol Stop: 06/20/18 08:59 Last Admin: 04/26/18 08:01 Dose: 25 mg [place] Carbonate (Eskalith) 300 mg PO BID MARCELINA; Protocol Stop: 06/17/18 16:59 Last Admin: 04/26/18 08:01 Dose: 300 mg Miscellaneous (Probiotic Screen) 1 ea MC PRN PRN PRN Reason: PROTOCOL Stop: 06/16/18 13:08 Quetiapine Fumarate 100 mg/ (Quetiapine Fumarate 50 mg) 150 mg PO HS MARCELINA Stop: 06/19/18 20:59 Last Admin: 04/25/18 20:46 Dose: 150 mg Silver Sulfadiazine (Ssd) 1 appl TP BID MARCELINA; Protocol Stop: 06/15/18 08:59 Last Admin: 04/26/18 09:03 Dose: 1 appl Trazodone HCl (Desyrel) 150 mg PO HS MARCELINA; Protocol Stop: 06/14/18 20:59 Last Admin: 04/25/18 20:45 Dose: 150 mg Triamcinolone Acetonide (Kenalog 0.1%) 1 appl TP BID MARCELINA Stop: 06/21/18 10:59 Last Admin: 04/26/18 09:03 Dose: 1 appl General: Alert, No acute distress, Other (Confused) HEENT: Atraumatic Neck: Supple Cardiovascular: Regular rate Lungs: Clear to auscultation Abdomen: Bowel sounds, Soft Extremities: Other (No edema) Neurological: Normal gait Skin: Other (Redness of face.) Psych/Mental Status: Other (Confused, not oriented) Assessment/Plan - Assessment Assessment: Patient is awake, alert, calm, in no acute distress. Dx: Contact dermatitis, Depression, Bipolar disorder, Hydrocephalus, Periphereal neuropathy. - Plan Plan: Patient follow by psychiatry. Wound care in left arm, will continue with SNF meds. Triamcinolone cream is added to treatment, soap will be change to Neutral soap. Will continue to monitor. Nutritional Asmnt/Malnutr-PDOC - Dietary Evaluation Malnutrition Findings (Please click <Entered> for more info): Nutritional Asmnt/Malnutrition Start: 04/20/18 15: 13 Text: Status: Complete Freq: Protocol: Document 04/20/18 15:13 ELICIA (Rec: 04/20/18 15:28 [email or web address]) Nutritional Asmnt/Malnutrition Patient General Information Nutritional Screening Low Risk Diagnosis psychosis Pertinent Medical Hx/Surgical Hx addictions, bipolar, normal presure hydrocephalus, peripheal neuropathy Subjective Information Pt seen sitting on bed at time of visit, awake and alert. pt stated food was fine, no question or concern. Per EMR, PO intake 100%. Current Diet Order/ Nutrition Support regular Pertinent Medications lipitor, culturelle Pertinent Labs 04/17 nutrition labs WNL Nutritional Hx/Data Height 1.73 m Height (Calculated Centimeters) 172.7 Current Weight (lbs) 76.204 kg Weight (Calculated Kilograms) 76.2 Weight (Calculated Grams) 34602.5 [place] Body Weight 140 Body Mass Index (BMI) 25.5 Weight Status Overweight GI Symptoms GI Symptoms None Last BM 04/17 x 2 Difficult in: None Skin Integrity/Comment: no skin problem noted per EMR Current %PO Good (75-100%) Estimated Nutritional Goals BEE in Kcals: Using Current wt Calories/Kcals/Kg 23-27 Kcals Calculated 8621-9640 Protein: Using Current wt Protein g/k.8-1 Protein Calculated 61-76 Fluid: ml 1748-2052ml (1ml/kcal) Nutritional Problem No current Nutrition Prob Problem N/A Malnutrition Alert Is there a minimum of two criteria No selected? Query Text:Check all the applicable criteria. A minimum of two criteria are recommended for diagnosis of either severe or non-severe malnutrition. Malnutrition Related to Morbid Obesity Malnutrition related to morbid obesity No Intervention/Recommendation Comments 1. Continue with regular diet as ordered. 2. Monitor PO intake, wt, labs and skin integrity 3. F/U as low risk in 7 days, 04/27 Expected Outcomes/Goals Expected Outcomes/Goals 1. PO intake to meet at least 75% of nutritional needs. 2. Wt stability, skin to remain intact, labs to approach WNL.
--- NOTE | 2018-04-26 14:18 | Progress Notes ---
DATE: 04/26/2018 FOLLOW-UP PROGRESS NOTE PROGRESS ON THE UNIT: Case was discussed with staff of the patient. The patient reports she has been distraught, overwhelmed, depressed because of her pain. She continues to report the pain is intolerable. I did increase the Neurontin; however, she reported it is not working. I did ask for Dr. Clark to come and evaluate her yesterday, to also work on discharge plan, however he is not here yet; I asked the staff to give him a call. Her lithium level is 0.91, which was on 04/24/2018 which is within acceptable therapeutic range. No side effects with the medication, no sedation, no nausea. PLAN: We will continue to work with the patient in group therapy and milieu therapy, adjust the medication as needed. JOB# [id number]
[2018-04-27] MEDS: Hydrocodone/APAP 5mg/325mg Tab PO PRN (06:16)
--- NOTE | 2018-04-27 08:42 | General Progress Note ---
Subjective - Review of Systems Service Date: 04/27/18 Subjective: Patient is awake, alert, calm. Objective - Results Result Diagrams: 04/17/18 06:10 04/17/18 06:10 Recent Labs: Laboratory Last Values WBC 8.6 Th/cmm (4.8-10.8) 04/17/18 06:10 RBC 4.49 Mil/cmm (3.80-5.20) 04/17/18 06:10 Hgb 12.9 gm/dL (12-16) 04/17/18 06:10 Hct 38.3 % (41.0-60) L 04/17/18 06:10 MCV 85.3 fl (81-100) 04/17/18 06:10 MCH 28.7 pg (27.0-31.0) 04/17/18 06:10 MCHC Differential 33.7 pg (28.0-36.0) 04/17/18 06:10 RDW 12.3 % (11.5-20.0) 04/17/18 06:10 Plt Count 213 Th/cmm (150-400) 04/17/18 06:10 MPV 9.8 fl 04/17/18 06:10 Neutrophils % 56.8 % (40.0-80.0) 04/17/18 06:10 Lymphocytes % 32.3 % (20.0-50.0) 04/17/18 06:10 Monocytes % 6.5 % (2.0-10.0) 04/17/18 06:10 Eosinophils % 3.5 % (0.0-5.0) 04/17/18 06:10 Basophils % 0.9 % (0.0-2.0) 04/17/18 06:10 Sodium 137 mEq/L (136-145) 04/17/18 06:10 Potassium 4.4 mEq/L (3.5-5.1) 04/17/18 06:10 Chloride 106 mEq/L (98-107) 04/17/18 06:10 Carbon Dioxide 24.1 mEq/L (21.0-31.0) 04/17/18 06:10 Anion Gap 11.3 (7.0-16.0) 04/17/18 06:10 BUN 18 mg/dL (7-25) 04/17/18 06:10 Creatinine 0.9 mg/dL (0.6-1.2) 04/17/18 06:10 Est GFR ( Amer) > 60.0 ml/min (>90) 04/17/18 06:10 Est GFR (Non-Af Amer) > 60.0 ml/min 04/17/18 06:10 BUN/Creatinine Ratio 20.0 04/17/18 06:10 Glucose 88 mg/dL (70-105) 04/17/18 06:10 POC Glucose 119 MG/DL (70-105) H 04/15/18 17:10 Calcium 9.9 mg/dL (8.6-10.3) 04/17/18 06:10 Total Bilirubin 0.7 mg/dL (0.3-1.0) 04/17/18 06:10 AST 10 U/L (13-39) L 04/17/18 06:10 ALT 9 U/L (7-52) 04/17/18 06:10 Alkaline Phosphatase 81 U/L (34-104) 04/17/18 06:10 Total Protein 6.3 gm/dL (6.0-8.3) 04/17/18 06:10 Albumin 4.0 gm/dL (3.7-5.3) 04/17/18 06:10 Globulin 2.3 gm/dL 04/17/18 06:10 Albumin/Globulin Ratio 1.7 (1.0-1.8) 04/17/18 06:10 Triglycerides 317 mg/dL (<150) H 04/15/18 19:45 Cholesterol 206 mg/dL (<200) H 04/15/18 19:45 LDL Cholesterol Direct 121 mg/dL (75-193) 04/15/18 19:45 HDL Cholesterol 39 mg/dL (23-92) 04/15/18 19:45 TSH 0.76 uIU/ml (0.34-5.60) 04/17/18 06:10 [place] 0.91 mmol/L (0.5-1.0) 04/24/18 12:55 - Physical Exam Vitals and I&O: Vital Signs Temp 98.1 F 04/27/18 06:21 Pulse 61 04/27/18 06:21 Resp 19 04/27/18 06:21 BP 109/66 04/27/18 06:21 Pulse Ox 98 09/20/18 06:21 Intake & Output 04/26/18 04/27/18 04/27/18 18:59 06:59 18:59 Intake Total 250 Balance 250 Intake: Oral 250 Other: # Voids 2 Active Medications: Current Medications Acetaminophen/Hydrocodone Bitart ([place] 5mg/325mg) 1 tab PO Q4HR PRN PRN Reason: Pain (Severe) Stop: 06/15/18 11:57 Last Admin: 04/27/18 06:16 Dose: 1 tab Alprazolam (Xanax) 1 mg PO DAILY MARCELINA; Protocol Stop: 06/17/18 08:59 Last Admin: 04/26/18 07:59 Dose: 1 mg Alprazolam (Xanax) 0.5 mg PO 1700 MARCELINA; Protocol Stop: 06/18/18 16:59 Last Admin: 04/26/18 17:45 Dose: 0.5 mg Atorvastatin Calcium (Lipitor) 10 mg PO DAILY MARCELINA; Protocol Stop: 06/19/18 08:59 Last Admin: 04/26/18 08:00 Dose: 10 mg Fluoxetine HCl (Prozac) 40 mg PO DAILY MARCELINA; Protocol Stop: 06/20/18 10:29 Last Admin: 04/26/18 08:00 Dose: 40 mg Gabapentin (Neurontin) 400 mg PO QID MARCELINA Stop: 06/24/18 12:59 Last Admin: 04/26/18 20:41 Dose: 400 mg Lactobacillus Rhamnosus (Culturelle 15b) 1 each PO DAILY MARCELINA Stop: 06/16/18 13:59 Last Admin: 04/26/18 08:00 Dose: 1 each Lamotrigine (Lamictal) 25 mg PO DAILY MARCELINA; Protocol Stop: 06/20/18 08:59 Last Admin: 04/26/18 08:01 Dose: 25 mg [place] Carbonate (Eskalith) 300 mg PO BID MARCELINA; Protocol Stop: 06/17/18 16:59 Last Admin: 04/26/18 17:45 Dose: 300 mg Miscellaneous (Probiotic Screen) 1 ea MC PRN PRN PRN Reason: PROTOCOL Stop: 06/16/18 13:08 Quetiapine Fumarate 100 mg/ (Quetiapine Fumarate 50 mg) 150 mg PO HS [facility] Stop: 06/19/18 20:59 Last Admin: 04/26/18 20:41 Dose: 150 mg Silver Sulfadiazine (Ssd) 1 appl TP BID MARCELINA; Protocol Stop: 06/15/18 08:59 Last Admin: 04/26/18 18:00 Dose: 1 appl Trazodone HCl (Desyrel) 150 mg PO HS MARCELINA; Protocol Stop: 06/14/18 20:59 Last Admin: 04/26/18 20:42 Dose: 150 mg Triamcinolone Acetonide (Kenalog 0.1%) 1 appl TP BID MARCELINA Stop: 06/21/18 10:59 Last Admin: 04/26/18 18:00 Dose: 1 appl General: Alert, No acute distress, Other (Confused) HEENT: Atraumatic Neck: Supple Cardiovascular: Regular rate Lungs: Clear to auscultation Abdomen: Bowel sounds, Soft Extremities: Other (No edema) Neurological: Normal gait Skin: Other (Redness of face.) Psych/Mental Status: Other (Confused, not oriented) Assessment/Plan - Assessment Assessment: Patient is awake, alert, calm, in no acute distress. Dx: Contact dermatitis, Depression, Bipolar disorder, Hydrocephalus, Periphereal neuropathy. - Plan Plan: Patient follow by psychiatry. Wound care in left arm, will continue with SNF meds. Triamcinolone cream is added to treatment, soap will be change to Neutral soap. Will continue to monitor. Nutritional Asmnt/Malnutr-PDOC - Dietary Evaluation Malnutrition Findings (Please click <Entered> for more info): Nutritional Asmnt/Malnutrition Start: 04/20/18 15: 13 Text: Status: Complete Freq: Protocol: Document 04/20/18 15:13 LCHENG (Rec: 04/20/18 15:28 [email or web address]) Nutritional Asmnt/Malnutrition Patient General Information Nutritional Screening Low Risk Diagnosis psychosis Pertinent Medical Hx/Surgical Hx addictions, bipolar, normal presure hydrocephalus, peripheal neuropathy Subjective Information Pt seen sitting on bed at time of visit, awake and alert. pt stated food was fine, no question or concern. Per EMR, PO intake 100%. Current Diet Order/ Nutrition Support regular Pertinent Medications lipitor, culturelle Pertinent Labs 04/17 nutrition labs WNL Nutritional Hx/Data Height 1.73 m Height (Calculated Centimeters) 172.7 Current Weight (lbs) 76.204 kg Weight (Calculated Kilograms) 76.2 Weight (Calculated Grams) 97978.5 [place] Body Weight 140 Body Mass Index (BMI) 25.5 Weight Status Overweight GI Symptoms GI Symptoms None Last BM 04/17 x 2 Difficult in: None Skin Integrity/Comment: no skin problem noted per EMR Current %PO Good (75-100%) Estimated Nutritional Goals BEE in Kcals: Using Current wt Calories/Kcals/Kg 23-27 Kcals Calculated 3156-9070 Protein: Using Current wt Protein g/k.8-1 Protein Calculated 61-76 Fluid: ml 1748-2052ml (1ml/kcal) Nutritional Problem No current Nutrition Prob Problem N/A Malnutrition Alert Is there a minimum of two criteria No selected? Query Text:Check all the applicable criteria. A minimum of two criteria are recommended for diagnosis of either severe or non-severe malnutrition. Malnutrition Related to Morbid Obesity Malnutrition related to morbid obesity No Intervention/Recommendation Comments 1. Continue with regular diet as ordered. 2. Monitor PO intake, wt, labs and skin integrity 3. F/U as low risk in 7 days, 04/27 Expected Outcomes/Goals Expected Outcomes/Goals 1. PO intake to meet at least 75% of nutritional needs. 2. Wt stability, skin to remain intact, labs to approach WNL.
[2018-04-27] MEDS: Lactobacillus Rhamnosus GG 15 Billion CFU CAP.SPRINK PO SCH (09:36)
[2018-04-27] MEDS: Triamcinolone Acetonide 0.1% Cream 15 gm TP SCH ×2 (09:37→18:10)
[2018-04-27] MEDS: Atorvastatin Calcium 10 MG TAB PO SCH (09:53)
--- NOTE | 2018-04-27 12:17 | Progress Notes ---
DATE: 04/27/2018 SUBJECTIVE: Case was discussed with staff of the patient. The patient continues to be in pain that have gonzalez ____ prior to admission are fading away. However, she reports she had peripheral neuropathy. I asked Dr. Clark to see her. She continues to have multiple somatic complaints, not sleeping very well because of the pain. She is eating better. She is currently denying any current intent to harm herself or anybody. She denies any auditory or visual hallucination. No side effects with the medication, no sedation, no nausea, no extrapyramidal symptoms, and we will continue to work with the patient in group therapy, milieu therapy, and adjust medications as needed. JOB# [id number]
[2018-04-28] MEDS: Hydrocodone/APAP 5mg/325mg Tab PO PRN (06:35)
--- NOTE | 2018-04-28 08:54 | General Progress Note ---
Subjective - Review of Systems Service Date: 03/28/18 Subjective: Patient is awake, alert, calm. Objective - Results Result Diagrams: 04/17/18 06:10 04/17/18 06:10 Recent Labs: Laboratory Last Values WBC 8.6 Th/cmm (4.8-10.8) 04/17/18 06:10 RBC 4.49 Mil/cmm (3.80-5.20) 04/17/18 06:10 Hgb 12.9 gm/dL (12-16) 04/17/18 06:10 Hct 38.3 % (41.0-60) L 04/17/18 06:10 MCV 85.3 fl (81-100) 04/17/18 06:10 MCH 28.7 pg (27.0-31.0) 04/17/18 06:10 MCHC Differential 33.7 pg (28.0-36.0) 04/17/18 06:10 RDW 12.3 % (11.5-20.0) 04/17/18 06:10 Plt Count 213 Th/cmm (150-400) 04/17/18 06:10 MPV 9.8 fl 04/17/18 06:10 Neutrophils % 56.8 % (40.0-80.0) 04/17/18 06:10 Lymphocytes % 32.3 % (20.0-50.0) 04/17/18 06:10 Monocytes % 6.5 % (2.0-10.0) 04/17/18 06:10 Eosinophils % 3.5 % (0.0-5.0) 04/17/18 06:10 Basophils % 0.9 % (0.0-2.0) 04/17/18 06:10 Sodium 137 mEq/L (136-145) 04/17/18 06:10 Potassium 4.4 mEq/L (3.5-5.1) 04/17/18 06:10 Chloride 106 mEq/L (98-107) 04/17/18 06:10 Carbon Dioxide 24.1 mEq/L (21.0-31.0) 04/17/18 06:10 Anion Gap 11.3 (7.0-16.0) 04/17/18 06:10 BUN 18 mg/dL (7-25) 04/17/18 06:10 Creatinine 0.9 mg/dL (0.6-1.2) 04/17/18 06:10 Est GFR ( Amer) > 60.0 ml/min (>90) 04/17/18 06:10 Est GFR (Non-Af Amer) > 60.0 ml/min 04/17/18 06:10 BUN/Creatinine Ratio 20.0 04/17/18 06:10 Glucose 88 mg/dL (70-105) 04/17/18 06:10 POC Glucose 119 MG/DL (70-105) H 04/15/18 17:10 Calcium 9.9 mg/dL (8.6-10.3) 04/17/18 06:10 Total Bilirubin 0.7 mg/dL (0.3-1.0) 04/17/18 06:10 AST 10 U/L (13-39) L 04/17/18 06:10 ALT 9 U/L (7-52) 04/17/18 06:10 Alkaline Phosphatase 81 U/L (34-104) 04/17/18 06:10 Total Protein 6.3 gm/dL (6.0-8.3) 04/17/18 06:10 Albumin 4.0 gm/dL (3.7-5.3) 04/17/18 06:10 Globulin 2.3 gm/dL 04/17/18 06:10 Albumin/Globulin Ratio 1.7 (1.0-1.8) 04/17/18 06:10 Triglycerides 317 mg/dL (<150) H 04/15/18 19:45 Cholesterol 206 mg/dL (<200) H 04/15/18 19:45 LDL Cholesterol Direct 121 mg/dL (75-193) 04/15/18 19:45 HDL Cholesterol 39 mg/dL (23-92) 04/15/18 19:45 TSH 0.76 uIU/ml (0.34-5.60) 04/17/18 06:10 [place] 0.91 mmol/L (0.5-1.0) 04/24/18 12:55 - Physical Exam Vitals and I&O: Vital Signs Temp 96.9 F 04/28/18 05:26 Pulse 60 04/28/18 05:26 Resp 16 04/28/18 05:26 BP 114/67 04/27/18 22:00 Pulse Ox 95 09/21/18 05:26 Intake & Output 04/27/18 04/28/18 04/28/18 18:59 06:59 18:59 Intake Total 500 Balance 500 Intake: Oral 500 Other: # Voids 4 # Bowel Movements 0 Active Medications: Current Medications Acetaminophen/Hydrocodone Bitart ([place] 5mg/325mg) 1 tab PO Q4HR PRN PRN Reason: Pain (Severe) Stop: 06/15/18 11:57 Last Admin: 04/28/18 06:35 Dose: 1 tab Alprazolam (Xanax) 1 mg PO DAILY MARCELINA; Protocol Stop: 06/17/18 08:59 Last Admin: 04/27/18 09:53 Dose: 1 mg Alprazolam (Xanax) 0.5 mg PO 1700 MARCELINA; Protocol Stop: 06/18/18 16:59 Last Admin: 04/27/18 17:19 Dose: 0.5 mg Atorvastatin Calcium (Lipitor) 10 mg PO DAILY MARCELINA; Protocol Stop: 06/19/18 08:59 Last Admin: 04/27/18 09:53 Dose: 10 mg Fluoxetine HCl (Prozac) 40 mg PO DAILY MARCELINA; Protocol Stop: 06/20/18 10:29 Last Admin: 04/27/18 09:34 Dose: 40 mg Gabapentin (Neurontin) 400 mg PO QID MRACELINA Stop: 06/24/18 12:59 Last Admin: 04/27/18 21:54 Dose: 400 mg Lactobacillus Rhamnosus (Culturelle 15b) 1 each PO DAILY MARCELINA Stop: 06/16/18 13:59 Last Admin: 04/27/18 09:36 Dose: 1 each Lamotrigine (Lamictal) 25 mg PO DAILY MARCELINA; Protocol Stop: 06/20/18 08:59 Last Admin: 04/27/18 09:34 Dose: 25 mg [place] Carbonate (Eskalith) 300 mg PO BID MARCELINA; Protocol Stop: 06/17/18 16:59 Last Admin: 04/27/18 17:18 Dose: 300 mg Miscellaneous (Probiotic Screen) 1 ea MC PRN PRN PRN Reason: PROTOCOL Stop: 06/16/18 13:08 Quetiapine Fumarate 100 mg/ (Quetiapine Fumarate 50 mg) 150 mg PO HS MARCELINA Stop: 06/19/18 20:59 Last Admin: 04/27/18 21:54 Dose: 150 mg Silver Sulfadiazine (Ssd) 1 appl TP BID MARCELINA; Protocol Stop: 06/15/18 08:59 Last Admin: 04/27/18 18:10 Dose: 1 appl Trazodone HCl (Desyrel) 150 mg PO HS MARCELINA; Protocol Stop: 06/14/18 20:59 Last Admin: 04/27/18 21:54 Dose: 150 mg Triamcinolone Acetonide (Kenalog 0.1%) 1 appl TP BID MARCELINA Stop: 06/21/18 10:59 Last Admin: 04/27/18 18:10 Dose: 1 appl General: Alert, No acute distress, Other (Confused) HEENT: Atraumatic Neck: Supple Cardiovascular: Regular rate Lungs: Clear to auscultation Abdomen: Bowel sounds, Soft Extremities: Other (No edema) Neurological: Normal gait Skin: Other (Redness of face.) Psych/Mental Status: Other (Confused, not oriented) Assessment/Plan - Assessment Assessment: Patient is awake, alert, calm, in no acute distress. Dx: Contact dermatitis, Depression, Bipolar disorder, Hydrocephalus, Periphereal neuropathy. - Plan Plan: Patient follow by psychiatry. Wound care in left arm, will continue with SNF meds. Triamcinolone cream is added to treatment, soap will be change to Neutral soap. Will continue to monitor. Nutritional Asmnt/Malnutr-PDOC - Dietary Evaluation Malnutrition Findings (Please click <Entered> for more info): Nutritional Asmnt/Malnutrition Start: 04/20/18 15: 13 Text: Status: Complete Freq: Protocol: Document 04/20/18 15:13 ELICIA (Rec: 04/20/18 15:28 [email or web address]) Nutritional Asmnt/Malnutrition Patient General Information Nutritional Screening Low Risk Diagnosis psychosis Pertinent Medical Hx/Surgical Hx addictions, bipolar, normal presure hydrocephalus, peripheal neuropathy Subjective Information Pt seen sitting on bed at time of visit, awake and alert. pt stated food was fine, no question or concern. Per EMR, PO intake 100%. Current Diet Order/ Nutrition Support regular Pertinent Medications lipitor, culturelle Pertinent Labs 04/17 nutrition labs WNL Nutritional Hx/Data Height 1.73 m Height (Calculated Centimeters) 172.7 Current Weight (lbs) 76.204 kg Weight (Calculated Kilograms) 76.2 Weight (Calculated Grams) 41280.5 [place] Body Weight 140 Body Mass Index (BMI) 25.5 Weight Status Overweight GI Symptoms GI Symptoms None Last BM 04/17 x 2 Difficult in: None Skin Integrity/Comment: no skin problem noted per EMR Current %PO Good (75-100%) Estimated Nutritional Goals BEE in Kcals: Using Current wt Calories/Kcals/Kg 23-27 Kcals Calculated 2177-3602 Protein: Using Current wt Protein g/k.8-1 Protein Calculated 61-76 Fluid: ml 1748-2052ml (1ml/kcal) Nutritional Problem No current Nutrition Prob Problem N/A Malnutrition Alert Is there a minimum of two criteria No selected? Query Text:Check all the applicable criteria. A minimum of two criteria are recommended for diagnosis of either severe or non-severe malnutrition. Malnutrition Related to Morbid Obesity Malnutrition related to morbid obesity No Intervention/Recommendation Comments 1. Continue with regular diet as ordered. 2. Monitor PO intake, wt, labs and skin integrity 3. F/U as low risk in 7 days, 04/27 Expected Outcomes/Goals Expected Outcomes/Goals 1. PO intake to meet at least 75% of nutritional needs. 2. Wt stability, skin to remain intact, labs to approach WNL.
[2018-04-28] MEDS: Lactobacillus Rhamnosus GG 15 Billion CFU CAP.SPRINK PO SCH (09:35)
[2018-04-28] MEDS: Atorvastatin Calcium 10 MG TAB PO SCH (09:35)
[2018-04-28] MEDS: Triamcinolone Acetonide 0.1% Cream 15 gm TP SCH ×2 (10:20→17:33)
--- NOTE | 2018-04-28 12:53 | Progress Notes ---
DATE: 04/28/2018 FOLLOW-UP PROGRESS NOTE PROGRESS ON THE UNIT: Case was discussed with staff of the patient, reviewed records. The patient was not seen by neurologist yet. Apparently, there is only 1 neurologist in this hospital that could come and see the patient; he is not sure if he can come or not or when he will come. As there is a history of normal pressure hydrocephalus, I will be consulting the medical doctor to see what his opinion regarding whether to wait or not for a neurology consult. She is still depressed, overwhelmed. She tried to burn herself prior to coming here, but she reports these feelings are not as prominent. No side effects with the medication, no sedation, no nausea, and no extrapyramidal symptoms. PLAN: We will continue to work with the patient in group therapy and milieu therapy, adjust the medications as needed. JOB# [id number]
[2018-04-29] MEDS: Hydrocodone/APAP 5mg/325mg Tab PO PRN (06:37)
[2018-04-29] MEDS: Lactobacillus Rhamnosus GG 15 Billion CFU CAP.SPRINK PO SCH (08:51)
[2018-04-29] MEDS: Atorvastatin Calcium 10 MG TAB PO SCH (08:52)
[2018-04-29] MEDS: Triamcinolone Acetonide 0.1% Cream 15 gm TP SCH ×2 (08:53→16:40)
--- NOTE | 2018-04-29 09:15 | General Progress Note ---
Subjective - Review of Systems Service Date: 04/29/18 Subjective: Patient is awake, alert, calm. Objective - Results Result Diagrams: 04/17/18 06:10 04/17/18 06:10 Recent Labs: Laboratory Last Values WBC 8.6 Th/cmm (4.8-10.8) 04/17/18 06:10 RBC 4.49 Mil/cmm (3.80-5.20) 04/17/18 06:10 Hgb 12.9 gm/dL (12-16) 04/17/18 06:10 Hct 38.3 % (41.0-60) L 04/17/18 06:10 MCV 85.3 fl (81-100) 04/17/18 06:10 MCH 28.7 pg (27.0-31.0) 04/17/18 06:10 MCHC Differential 33.7 pg (28.0-36.0) 04/17/18 06:10 RDW 12.3 % (11.5-20.0) 04/17/18 06:10 Plt Count 213 Th/cmm (150-400) 04/17/18 06:10 MPV 9.8 fl 04/17/18 06:10 Neutrophils % 56.8 % (40.0-80.0) 04/17/18 06:10 Lymphocytes % 32.3 % (20.0-50.0) 04/17/18 06:10 Monocytes % 6.5 % (2.0-10.0) 04/17/18 06:10 Eosinophils % 3.5 % (0.0-5.0) 04/17/18 06:10 Basophils % 0.9 % (0.0-2.0) 04/17/18 06:10 Sodium 137 mEq/L (136-145) 04/17/18 06:10 Potassium 4.4 mEq/L (3.5-5.1) 04/17/18 06:10 Chloride 106 mEq/L (98-107) 04/17/18 06:10 Carbon Dioxide 24.1 mEq/L (21.0-31.0) 04/17/18 06:10 Anion Gap 11.3 (7.0-16.0) 04/17/18 06:10 BUN 18 mg/dL (7-25) 04/17/18 06:10 Creatinine 0.9 mg/dL (0.6-1.2) 04/17/18 06:10 Est GFR ( Amer) > 60.0 ml/min (>90) 04/17/18 06:10 Est GFR (Non-Af Amer) > 60.0 ml/min 04/17/18 06:10 BUN/Creatinine Ratio 20.0 04/17/18 06:10 Glucose 88 mg/dL (70-105) 04/17/18 06:10 POC Glucose 119 MG/DL (70-105) H 04/15/18 17:10 Calcium 9.9 mg/dL (8.6-10.3) 04/17/18 06:10 Total Bilirubin 0.7 mg/dL (0.3-1.0) 04/17/18 06:10 AST 10 U/L (13-39) L 04/17/18 06:10 ALT 9 U/L (7-52) 04/17/18 06:10 Alkaline Phosphatase 81 U/L (34-104) 04/17/18 06:10 Total Protein 6.3 gm/dL (6.0-8.3) 04/17/18 06:10 Albumin 4.0 gm/dL (3.7-5.3) 04/17/18 06:10 Globulin 2.3 gm/dL 04/17/18 06:10 Albumin/Globulin Ratio 1.7 (1.0-1.8) 04/17/18 06:10 Triglycerides 317 mg/dL (<150) H 04/15/18 19:45 Cholesterol 206 mg/dL (<200) H 04/15/18 19:45 LDL Cholesterol Direct 121 mg/dL (75-193) 04/15/18 19:45 HDL Cholesterol 39 mg/dL (23-92) 04/15/18 19:45 TSH 0.76 uIU/ml (0.34-5.60) 04/17/18 06:10 [place] 0.91 mmol/L (0.5-1.0) 04/24/18 12:55 - Physical Exam Vitals and I&O: Vital Signs Temp 98.3 F 04/28/18 14:00 Pulse 57 04/28/18 14:00 Resp 18 04/28/18 14:00 BP 100/51 04/28/18 14:00 Pulse Ox 96 09/21/18 14:00 Intake & Output 04/28/18 04/29/18 04/29/18 18:59 06:59 18:59 Intake Total 1550 Balance 1550 Intake: Oral 1550 Other: # Voids 3 # Bowel Movements 0 Active Medications: Current Medications Acetaminophen/Hydrocodone Bitart ([place] 5mg/325mg) 1 tab PO Q4HR PRN PRN Reason: Pain (Severe) Stop: 06/15/18 11:57 Last Admin: 04/29/18 06:37 Dose: 1 tab Alprazolam (Xanax) 1 mg PO DAILY MARECLINA; Protocol Stop: 06/17/18 08:59 Last Admin: 04/29/18 08:52 Dose: 1 mg Alprazolam (Xanax) 0.5 mg PO 1700 MARCELINA; Protocol Stop: 06/18/18 16:59 Last Admin: 04/28/18 17:32 Dose: 0.5 mg Atorvastatin Calcium (Lipitor) 10 mg PO DAILY MARCELINA; Protocol Stop: 06/19/18 08:59 Last Admin: 04/29/18 08:52 Dose: 10 mg Fluoxetine HCl (Prozac) 40 mg PO DAILY MARCELINA; Protocol Stop: 06/20/18 10:29 Last Admin: 04/29/18 08:52 Dose: 40 mg Gabapentin (Neurontin) 400 mg PO QID MARCELINA Stop: 06/24/18 12:59 Last Admin: 04/29/18 08:52 Dose: 400 mg Lactobacillus Rhamnosus (Culturelle 15b) 1 each PO DAILY MARCELINA Stop: 06/16/18 13:59 Last Admin: 04/29/18 08:51 Dose: 1 each Lamotrigine (Lamictal) 25 mg PO DAILY MARCELINA; Protocol Stop: 06/20/18 08:59 Last Admin: 04/29/18 08:51 Dose: 25 mg [place] Carbonate (Eskalith) 300 mg PO BID MARCELINA; Protocol Stop: 06/27/18 10:59 Last Admin: 04/29/18 08:53 Dose: 300 mg Miscellaneous (Probiotic Screen) 1 ea MC PRN PRN PRN Reason: PROTOCOL Stop: 06/16/18 13:08 Quetiapine Fumarate 100 mg/ (Quetiapine Fumarate 50 mg) 150 mg PO HS MARCELINA Stop: 06/19/18 20:59 Last Admin: 04/28/18 21:07 Dose: 150 mg [place] Sulfadiazine (Ssd) 1 appl TP BID MARCELINA; Protocol Stop: 06/15/18 08:59 Last Admin: 04/29/18 08:53 Dose: 1 appl Trazodone HCl (Desyrel) 150 mg PO HS MARCELINA; Protocol Stop: 06/14/18 20:59 Last Admin: 04/28/18 21:06 Dose: 150 mg Triamcinolone Acetonide (Kenalog 0.1%) 1 appl TP BID MARCELINA Stop: 06/21/18 10:59 Last Admin: 04/29/18 08:53 Dose: 1 appl General: Alert, No acute distress, Other (Confused) HEENT: Atraumatic Neck: Supple Cardiovascular: Regular rate Lungs: Clear to auscultation Abdomen: Bowel sounds, Soft Extremities: Other (No edema) Neurological: Normal gait Skin: Other (Redness of face.) Psych/Mental Status: Other (Confused, not oriented) Assessment/Plan - Assessment Assessment: Patient is awake, alert, calm, in no acute distress. Dx: Contact dermatitis, Depression, Bipolar disorder, Hydrocephalus, Periphereal neuropathy. - Plan Plan: Patient follow by psychiatry. Wound care in left arm, will continue with SNF meds. Triamcinolone cream is added to treatment, soap will be change to Neutral soap. Will continue to monitor. Nutritional Asmnt/Malnutr-PDOC - Dietary Evaluation Malnutrition Findings (Please click <Entered> for more info): Nutritional Asmnt/Malnutrition Start: 04/20/18 15: 13 Text: Status: Complete Freq: Protocol: Document 04/20/18 15:13 ELICIA (Rec: 04/20/18 15:28 [email or web address]) Nutritional Asmnt/Malnutrition Patient General Information Nutritional Screening Low Risk Diagnosis psychosis Pertinent Medical Hx/Surgical Hx addictions, bipolar, normal presure hydrocephalus, peripheal neuropathy Subjective Information Pt seen sitting on bed at time of visit, awake and alert. pt stated food was fine, no question or concern. Per EMR, PO intake 100%. Current Diet Order/ Nutrition Support regular Pertinent Medications lipitor, culturelle Pertinent Labs 04/17 nutrition labs WNL Nutritional Hx/Data Height 1.73 m Height (Calculated Centimeters) 172.7 Current Weight (lbs) 76.204 kg Weight (Calculated Kilograms) 76.2 Weight (Calculated Grams) 99223.5 [place] Body Weight 140 Body Mass Index (BMI) 25.5 Weight Status Overweight GI Symptoms GI Symptoms None Last BM 04/17 x 2 Difficult in: None Skin Integrity/Comment: no skin problem noted per EMR Current %PO Good (75-100%) Estimated Nutritional Goals BEE in Kcals: Using Current wt Calories/Kcals/Kg 23-27 Kcals Calculated 3767-9770 Protein: Using Current wt Protein g/k.8-1 Protein Calculated 61-76 Fluid: ml 1748-2052ml (1ml/kcal) Nutritional Problem No current Nutrition Prob Problem N/A Malnutrition Alert Is there a minimum of two criteria No selected? Query Text:Check all the applicable criteria. A minimum of two criteria are recommended for diagnosis of either severe or non-severe malnutrition. Malnutrition Related to Morbid Obesity Malnutrition related to morbid obesity No Intervention/Recommendation Comments 1. Continue with regular diet as ordered. 2. Monitor PO intake, wt, labs and skin integrity 3. F/U as low risk in 7 days, 04/27 Expected Outcomes/Goals Expected Outcomes/Goals 1. PO intake to meet at least 75% of nutritional needs. 2. Wt stability, skin to remain intact, labs to approach WNL.
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
[2018-04-30] MEDS: Lactobacillus Rhamnosus GG 15 Billion CFU CAP.SPRINK PO SCH (09:08)
[2018-04-30] MEDS: Atorvastatin Calcium 10 MG TAB PO SCH (09:08)
[2018-04-30] MEDS: Triamcinolone Acetonide 0.1% Cream 15 gm TP SCH ×2 (09:09→17:32)
--- NOTE | 2018-04-30 09:28 | General Progress Note ---
Subjective - Review of Systems Service Date: 04/30/18 Subjective: Patient is awake, alert, calm. Objective - Results Result Diagrams: 04/17/18 06:10 04/17/18 06:10 Recent Labs: Laboratory Last Values WBC 8.6 Th/cmm (4.8-10.8) 04/17/18 06:10 RBC 4.49 Mil/cmm (3.80-5.20) 04/17/18 06:10 Hgb 12.9 gm/dL (12-16) 04/17/18 06:10 Hct 38.3 % (41.0-60) L 04/17/18 06:10 MCV 85.3 fl (81-100) 04/17/18 06:10 MCH 28.7 pg (27.0-31.0) 04/17/18 06:10 MCHC Differential 33.7 pg (28.0-36.0) 04/17/18 06:10 RDW 12.3 % (11.5-20.0) 04/17/18 06:10 Plt Count 213 Th/cmm (150-400) 04/17/18 06:10 MPV 9.8 fl 04/17/18 06:10 Neutrophils % 56.8 % (40.0-80.0) 04/17/18 06:10 Lymphocytes % 32.3 % (20.0-50.0) 04/17/18 06:10 Monocytes % 6.5 % (2.0-10.0) 04/17/18 06:10 Eosinophils % 3.5 % (0.0-5.0) 04/17/18 06:10 Basophils % 0.9 % (0.0-2.0) 04/17/18 06:10 Sodium 137 mEq/L (136-145) 04/17/18 06:10 Potassium 4.4 mEq/L (3.5-5.1) 04/17/18 06:10 Chloride 106 mEq/L (98-107) 04/17/18 06:10 Carbon Dioxide 24.1 mEq/L (21.0-31.0) 04/17/18 06:10 Anion Gap 11.3 (7.0-16.0) 04/17/18 06:10 BUN 18 mg/dL (7-25) 04/17/18 06:10 Creatinine 0.9 mg/dL (0.6-1.2) 04/17/18 06:10 Est GFR ( Amer) > 60.0 ml/min (>90) 04/17/18 06:10 Est GFR (Non-Af Amer) > 60.0 ml/min 04/17/18 06:10 BUN/Creatinine Ratio 20.0 04/17/18 06:10 Glucose 88 mg/dL (70-105) 04/17/18 06:10 POC Glucose 119 MG/DL (70-105) H 04/15/18 17:10 Calcium 9.9 mg/dL (8.6-10.3) 04/17/18 06:10 Total Bilirubin 0.7 mg/dL (0.3-1.0) 04/17/18 06:10 AST 10 U/L (13-39) L 04/17/18 06:10 ALT 9 U/L (7-52) 04/17/18 06:10 Alkaline Phosphatase 81 U/L (34-104) 04/17/18 06:10 Total Protein 6.3 gm/dL (6.0-8.3) 04/17/18 06:10 Albumin 4.0 gm/dL (3.7-5.3) 04/17/18 06:10 Globulin 2.3 gm/dL 04/17/18 06:10 Albumin/Globulin Ratio 1.7 (1.0-1.8) 04/17/18 06:10 Triglycerides 317 mg/dL (<150) H 04/15/18 19:45 Cholesterol 206 mg/dL (<200) H 04/15/18 19:45 LDL Cholesterol Direct 121 mg/dL (75-193) 04/15/18 19:45 HDL Cholesterol 39 mg/dL (23-92) 04/15/18 19:45 TSH 0.76 uIU/ml (0.34-5.60) 04/17/18 06:10 [place] 0.91 mmol/L (0.5-1.0) 04/24/18 12:55 - Physical Exam Vitals and I&O: Vital Signs Temp 97.6 F 04/30/18 04:35 Pulse 67 04/30/18 04:35 Resp 19 04/30/18 04:35 BP 139/68 04/30/18 04:35 Pulse Ox 98 09/23/18 04:35 Intake & Output 04/29/18 04/30/18 04/30/18 18:59 06:59 18:59 Intake Total 480 Balance 480 Intake: Oral 480 Other: # Voids 2 Active Medications: Current Medications Acetaminophen/Hydrocodone Bitart ([place] 5mg/325mg) 1 tab PO Q4HR PRN PRN Reason: Pain (Severe) Stop: 06/15/18 11:57 Last Admin: 04/29/18 06:37 Dose: 1 tab Alprazolam (Xanax) 1 mg PO DAILY MARCELINA; Protocol Stop: 06/17/18 08:59 Last Admin: 04/30/18 09:08 Dose: 1 mg Alprazolam (Xanax) 0.5 mg PO 1700 MARCELINA; Protocol Stop: 06/18/18 16:59 Last Admin: 04/29/18 16:39 Dose: 0.5 mg Atorvastatin Calcium (Lipitor) 10 mg PO DAILY MARCELINA; Protocol Stop: 06/19/18 08:59 Last Admin: 04/30/18 09:08 Dose: 10 mg Fluoxetine HCl (Prozac) 40 mg PO DAILY MARCELINA; Protocol Stop: 06/20/18 10:29 Last Admin: 04/30/18 09:07 Dose: 40 mg Gabapentin (Neurontin) 400 mg PO QID MARCELINA Stop: 06/24/18 12:59 Last Admin: 04/30/18 09:08 Dose: 400 mg Lactobacillus Rhamnosus (Culturelle 15b) 1 each PO DAILY MARCELINA Stop: 06/16/18 13:59 Last Admin: 04/30/18 09:08 Dose: 1 each Lamotrigine (Lamictal) 25 mg PO DAILY MARCELINA; Protocol Stop: 06/20/18 08:59 Last Admin: 04/30/18 09:08 Dose: 25 mg [place] Carbonate (Eskalith) 300 mg PO BID MARCELINA; Protocol Stop: 06/27/18 10:59 Last Admin: 04/30/18 09:08 Dose: 300 mg Miscellaneous (Probiotic Screen) 1 ea MC PRN PRN PRN Reason: PROTOCOL Stop: 06/16/18 13:08 Quetiapine Fumarate 100 mg/ (Quetiapine Fumarate 50 mg) 150 mg PO HS REPLACED BY [facility] Stop: 06/19/18 20:59 Last Admin: 04/29/18 21:09 Dose: 150 mg Trazodone HCl (Desyrel) 150 mg PO HS MARCELINA; Protocol Stop: 06/14/18 20:59 Last Admin: 04/29/18 21:09 Dose: 150 mg Triamcinolone Acetonide (Kenalog 0.1%) 1 appl TP BID MARCELINA Stop: 06/21/18 10:59 Last Admin: 04/30/18 09:09 Dose: 1 appl General: Alert, No acute distress, Other (Confused) HEENT: Atraumatic Neck: Supple Cardiovascular: Regular rate Lungs: Clear to auscultation Abdomen: Bowel sounds, Soft Extremities: Other (No edema) Neurological: Normal gait Skin: Other (Redness of face.) Psych/Mental Status: Other (Confused, not oriented) Assessment/Plan - Assessment Assessment: Patient is awake, alert, calm, in no acute distress. Dx: Contact dermatitis, Depression, Bipolar disorder, Hydrocephalus, Periphereal neuropathy. - Plan Plan: Patient follow by psychiatry. Wound care in left arm, will continue with SNF meds. Triamcinolone cream is added to treatment, soap will be change to Neutral soap. Will continue to monitor. Nutritional Asmnt/Malnutr-PDOC - Dietary Evaluation Malnutrition Findings (Please click <Entered> for more info): Nutritional Asmnt/Malnutrition Start: 04/20/18 15: 13 Text: Status: Complete Freq: Protocol: Document 04/20/18 15:13 LCHENG (Rec: 04/20/18 15:28 [email or web address] [email or web address]) Nutritional Asmnt/Malnutrition Patient General Information Nutritional Screening Low Risk Diagnosis psychosis Pertinent Medical Hx/Surgical Hx addictions, bipolar, normal presure hydrocephalus, peripheal neuropathy Subjective Information Pt seen sitting on bed at time of visit, awake and alert. pt stated food was fine, no question or concern. Per EMR, PO intake 100%. Current Diet Order/ Nutrition Support regular Pertinent Medications lipitor, culturelle Pertinent Labs 04/17 nutrition labs WNL Nutritional Hx/Data Height 1.73 m Height (Calculated Centimeters) 172.7 Current Weight (lbs) 76.204 kg Weight (Calculated Kilograms) 76.2 Weight (Calculated Grams) 71389.5 [place] Body Weight 140 Body Mass Index (BMI) 25.5 Weight Status Overweight GI Symptoms GI Symptoms None Last BM 9/10 x 2 Difficult in: None Skin Integrity/Comment: no skin problem noted per EMR Current %PO Good (75-100%) Estimated Nutritional Goals BEE in Kcals: Using Current wt Calories/Kcals/Kg 23-27 Kcals Calculated 8286-3599 Protein: Using Current wt Protein g/k.8-1 Protein Calculated 61-76 Fluid: ml 1748-2052ml (1ml/kcal) Nutritional Problem No current Nutrition Prob Problem N/A Malnutrition Alert Is there a minimum of two criteria No selected? Query Text:Check all the applicable criteria. A minimum of two criteria are recommended for diagnosis of either severe or non-severe malnutrition. Malnutrition Related to Morbid Obesity Malnutrition related to morbid obesity No Intervention/Recommendation Comments 1. Continue with regular diet as ordered. 2. Monitor PO intake, wt, labs and skin integrity 3. F/U as low risk in 7 days, 04/27 Expected Outcomes/Goals Expected Outcomes/Goals 1. PO intake to meet at least 75% of nutritional needs. 2. Wt stability, skin to remain intact, labs to approach WNL.
[2018-04-30] MEDS: Hydrocodone/APAP 5mg/325mg Tab PO PRN (10:11)
[2018-05-01] MEDS: Hydrocodone/APAP 5mg/325mg Tab PO PRN ×2 (06:01→16:41)
--- NOTE | 2018-05-01 08:42 | General Progress Note ---
Subjective - Review of Systems Service Date: 05/01/18 Subjective: Patient is awake, alert, calm. Objective - Results Result Diagrams: 04/17/18 06:10 04/17/18 06:10 Recent Labs: Laboratory Last Values WBC 8.6 Th/cmm (4.8-10.8) 04/17/18 06:10 RBC 4.49 Mil/cmm (3.80-5.20) 04/17/18 06:10 Hgb 12.9 gm/dL (12-16) 04/17/18 06:10 Hct 38.3 % (41.0-60) L 04/17/18 06:10 MCV 85.3 fl (81-100) 04/17/18 06:10 MCH 28.7 pg (27.0-31.0) 04/17/18 06:10 MCHC Differential 33.7 pg (28.0-36.0) 04/17/18 06:10 RDW 12.3 % (11.5-20.0) 04/17/18 06:10 Plt Count 213 Th/cmm (150-400) 04/17/18 06:10 MPV 9.8 fl 04/17/18 06:10 Neutrophils % 56.8 % (40.0-80.0) 04/17/18 06:10 Lymphocytes % 32.3 % (20.0-50.0) 04/17/18 06:10 Monocytes % 6.5 % (2.0-10.0) 04/17/18 06:10 Eosinophils % 3.5 % (0.0-5.0) 04/17/18 06:10 Basophils % 0.9 % (0.0-2.0) 04/17/18 06:10 Sodium 137 mEq/L (136-145) 04/17/18 06:10 Potassium 4.4 mEq/L (3.5-5.1) 04/17/18 06:10 Chloride 106 mEq/L (98-107) 04/17/18 06:10 Carbon Dioxide 24.1 mEq/L (21.0-31.0) 04/17/18 06:10 Anion Gap 11.3 (7.0-16.0) 04/17/18 06:10 BUN 18 mg/dL (7-25) 04/17/18 06:10 Creatinine 0.9 mg/dL (0.6-1.2) 04/17/18 06:10 Est GFR ( Amer) > 60.0 ml/min (>90) 04/17/18 06:10 Est GFR (Non-Af Amer) > 60.0 ml/min 04/17/18 06:10 BUN/Creatinine Ratio 20.0 04/17/18 06:10 Glucose 88 mg/dL (70-105) 04/17/18 06:10 POC Glucose 119 MG/DL (70-105) H 04/15/18 17:10 Calcium 9.9 mg/dL (8.6-10.3) 04/17/18 06:10 Total Bilirubin 0.7 mg/dL (0.3-1.0) 04/17/18 06:10 AST 10 U/L (13-39) L 04/17/18 06:10 ALT 9 U/L (7-52) 04/17/18 06:10 Alkaline Phosphatase 81 U/L (34-104) 04/17/18 06:10 Total Protein 6.3 gm/dL (6.0-8.3) 04/17/18 06:10 Albumin 4.0 gm/dL (3.7-5.3) 04/17/18 06:10 Globulin 2.3 gm/dL 04/17/18 06:10 Albumin/Globulin Ratio 1.7 (1.0-1.8) 04/17/18 06:10 Triglycerides 317 mg/dL (<150) H 04/15/18 19:45 Cholesterol 206 mg/dL (<200) H 04/15/18 19:45 LDL Cholesterol Direct 121 mg/dL (75-193) 04/15/18 19:45 HDL Cholesterol 39 mg/dL (23-92) 04/15/18 19:45 TSH 0.76 uIU/ml (0.34-5.60) 04/17/18 06:10 [place] 0.91 mmol/L (0.5-1.0) 04/24/18 12:55 - Physical Exam Vitals and I&O: Vital Signs Temp 98.0 F 05/01/18 05:04 Pulse 60 05/01/18 05:04 Resp 20 05/01/18 05:04 BP 121/87 05/01/18 05:04 Pulse Ox 93 09/24/18 05:04 Intake & Output 04/30/18 05/01/18 05/01/18 18:59 06:59 18:59 Intake Total 1550 240 Balance 1550 240 Intake: Oral 1550 240 Other: # Voids 4 2 # Bowel Movements 0 0 Active Medications: Current Medications Acetaminophen/Hydrocodone Bitart ([place] 5mg/325mg) 1 tab PO Q4HR PRN PRN Reason: Pain (Severe) Stop: 06/15/18 11:57 Last Admin: 05/01/18 06:01 Dose: 1 tab Alprazolam (Xanax) 1 mg PO DAILY MARCELINA; Protocol Stop: 06/17/18 08:59 Last Admin: 04/30/18 09:08 Dose: 1 mg Alprazolam (Xanax) 0.5 mg PO 1700 MARCELINA; Protocol Stop: 06/18/18 16:59 Last Admin: 04/30/18 17:31 Dose: 0.5 mg Atorvastatin Calcium (Lipitor) 10 mg PO DAILY MARCELINA; Protocol Stop: 06/19/18 08:59 Last Admin: 04/30/18 09:08 Dose: 10 mg Fluoxetine HCl (Prozac) 40 mg PO DAILY MARCELINA; Protocol Stop: 06/20/18 10:29 Last Admin: 04/30/18 09:07 Dose: 40 mg Gabapentin (Neurontin) 400 mg PO QID MARCELINA Stop: 06/24/18 12:59 Last Admin: 04/30/18 20:15 Dose: 400 mg Lactobacillus Rhamnosus (Culturelle 15b) 1 each PO DAILY MARCELINA Stop: 06/16/18 13:59 Last Admin: 04/30/18 09:08 Dose: 1 each Lamotrigine (Lamictal) 25 mg PO DAILY [facility]; Protocol Stop: 06/20/18 08:59 Last Admin: 04/30/18 09:08 Dose: 25 mg [place] Carbonate (Eskalith) 300 mg PO BID MARCELINA; Protocol Stop: 06/27/18 10:59 Last Admin: 04/30/18 17:31 Dose: 300 mg Miscellaneous (Probiotic Screen) 1 ea MC PRN PRN PRN Reason: PROTOCOL Stop: 06/16/18 13:08 Quetiapine Fumarate 100 mg/ (Quetiapine Fumarate 50 mg) 150 mg PO HS MARCELINA Stop: 06/19/18 20:59 Last Admin: 04/30/18 20:14 Dose: 150 mg Trazodone HCl (Desyrel) 150 mg PO HS MARCELINA; Protocol Stop: 06/14/18 20:59 Last Admin: 04/30/18 20:15 Dose: 150 mg Triamcinolone Acetonide (Kenalog 0.1%) 1 appl TP BID MARCELINA Stop: 06/21/18 10:59 Last Admin: 04/30/18 17:32 Dose: 1 appl General: Alert, No acute distress, Other (Confused) HEENT: Atraumatic Neck: Supple Cardiovascular: Regular rate Lungs: Clear to auscultation Abdomen: Bowel sounds, Soft Extremities: Other (No edema) Neurological: Normal gait Skin: Other (Redness of face.) Psych/Mental Status: Other (Confused, not oriented) Assessment/Plan - Assessment Assessment: Patient is awake, alert, calm, in no acute distress. Dx: Contact dermatitis, Depression, Bipolar disorder, Hydrocephalus, Periphereal neuropathy. - Plan Plan: Patient follow by psychiatry. Wound care in left arm, will continue with SNF meds. Triamcinolone cream is added to treatment, soap will be change to Neutral soap. Will continue to monitor. Nutritional Asmnt/Malnutr-PDOC - Dietary Evaluation Malnutrition Findings (Please click <Entered> for more info): Nutritional Asmnt/Malnutrition Start: 04/20/18 15: 13 Text: Status: Complete Freq: Protocol: Document 04/20/18 15:13 LCHENG (Rec: 04/20/18 15:28 [email or web address] [email or web address]) Nutritional Asmnt/Malnutrition Patient General Information Nutritional Screening Low Risk Diagnosis psychosis Pertinent Medical Hx/Surgical Hx addictions, bipolar, normal presure hydrocephalus, peripheal neuropathy Subjective Information Pt seen sitting on bed at time of visit, awake and alert. pt stated food was fine, no question or concern. Per EMR, PO intake 100%. Current Diet Order/ Nutrition Support regular Pertinent Medications lipitor, culturelle Pertinent Labs 04/17 nutrition labs WNL Nutritional Hx/Data Height 1.73 m Height (Calculated Centimeters) 172.7 Current Weight (lbs) 76.204 kg Weight (Calculated Kilograms) 76.2 Weight (Calculated Grams) 34745.5 [place] Body Weight 140 Body Mass Index (BMI) 25.5 Weight Status Overweight GI Symptoms GI Symptoms None Last BM 04/17 x 2 Difficult in: None Skin Integrity/Comment: no skin problem noted per EMR Current %PO Good (75-100%) Estimated Nutritional Goals BEE in Kcals: Using Current wt Calories/Kcals/Kg 23-27 Kcals Calculated 9796-3737 Protein: Using Current wt Protein g/k.8-1 Protein Calculated 61-76 Fluid: ml 1748-2051ml (1ml/kcal) Nutritional Problem No current Nutrition Prob Problem N/A Malnutrition Alert Is there a minimum of two criteria No selected? Query Text:Check all the applicable criteria. A minimum of two criteria are recommended for diagnosis of either severe or non-severe malnutrition. Malnutrition Related to Morbid Obesity Malnutrition related to morbid obesity No Intervention/Recommendation Comments 1. Continue with regular diet as ordered. 2. Monitor PO intake, wt, labs and skin integrity 3. F/U as low risk in 7 days, 04/27 Expected Outcomes/Goals Expected Outcomes/Goals 1. PO intake to meet at least 75% of nutritional needs. 2. Wt stability, skin to remain intact, labs to approach WNL.
[2018-05-01] MEDS: Lactobacillus Rhamnosus GG 15 Billion CFU CAP.SPRINK PO SCH (08:47)
[2018-05-01] MEDS: Atorvastatin Calcium 10 MG TAB PO SCH (08:47)
[2018-05-01] MEDS: Triamcinolone Acetonide 0.1% Cream 15 gm TP SCH ×2 (08:48→16:42)
--- NOTE | 2018-05-01 22:43 | Progress Notes ---
DATE: 05/01/2018 Case was discussed with staff of the patient, reviewed records. The patient states she is not sleeping well so far. She is easily overwhelmed, irritable, agitated, and continues to be overwhelmed. Actually, we have tried to get a neurologist to see her, but so far the neurologist call he is only one that have privileges here. Dr. Clark gave us his response that he is too busy, he was not sure when he is coming, so she maybe she needs to do the neuro consult when she leaves the hospital in the nursing facility. They need to send her to neurologist if already maybe she have a neurologist already taking care of her. No side effects of the medication, no sedation, no nausea, no extrapyramidal symptoms. I will be increasing her Seroquel to 200 mg at bedtime, also working on discharge plan and she is telling the staff to try and get Dr. Clark to come see her, but no response from him so far. We will continue the patient in group therapy, milieu therapy and adjust medication as needed. JOB# [id number]
--- NOTE | 2018-05-02 08:30 | General Progress Note ---
Subjective - Review of Systems Service Date: 05/02/18 Subjective: Patient is awake, alert, calm. Objective - Results Result Diagrams: 04/17/18 06:10 04/17/18 06:10 Recent Labs: Laboratory Last Values WBC 8.6 Th/cmm (4.8-10.8) 04/17/18 06:10 RBC 4.49 Mil/cmm (3.80-5.20) 04/17/18 06:10 Hgb 12.9 gm/dL (12-16) 04/17/18 06:10 Hct 38.3 % (41.0-60) L 04/17/18 06:10 MCV 85.3 fl (81-100) 04/17/18 06:10 MCH 28.7 pg (27.0-31.0) 04/17/18 06:10 MCHC Differential 33.7 pg (28.0-36.0) 04/17/18 06:10 RDW 12.3 % (11.5-20.0) 04/17/18 06:10 Plt Count 213 Th/cmm (150-400) 04/17/18 06:10 MPV 9.8 fl 04/17/18 06:10 Neutrophils % 56.8 % (40.0-80.0) 04/17/18 06:10 Lymphocytes % 32.3 % (20.0-50.0) 04/17/18 06:10 Monocytes % 6.5 % (2.0-10.0) 04/17/18 06:10 Eosinophils % 3.5 % (0.0-5.0) 04/17/18 06:10 Basophils % 0.9 % (0.0-2.0) 04/17/18 06:10 Sodium 137 mEq/L (136-145) 04/17/18 06:10 Potassium 4.4 mEq/L (3.5-5.1) 04/17/18 06:10 Chloride 106 mEq/L (98-107) 04/17/18 06:10 Carbon Dioxide 24.1 mEq/L (21.0-31.0) 04/17/18 06:10 Anion Gap 11.3 (7.0-16.0) 04/17/18 06:10 BUN 18 mg/dL (7-25) 04/17/18 06:10 Creatinine 0.9 mg/dL (0.6-1.2) 04/17/18 06:10 Est GFR ( Amer) > 60.0 ml/min (>90) 04/17/18 06:10 Est GFR (Non-Af Amer) > 60.0 ml/min 04/17/18 06:10 BUN/Creatinine Ratio 20.0 04/17/18 06:10 Glucose 88 mg/dL (70-105) 04/17/18 06:10 POC Glucose 119 MG/DL (70-105) H 04/15/18 17:10 Calcium 9.9 mg/dL (8.6-10.3) 04/17/18 06:10 Total Bilirubin 0.7 mg/dL (0.3-1.0) 04/17/18 06:10 AST 10 U/L (13-39) L 04/17/18 06:10 ALT 9 U/L (7-52) 04/17/18 06:10 Alkaline Phosphatase 81 U/L (34-104) 04/17/18 06:10 Total Protein 6.3 gm/dL (6.0-8.3) 04/17/18 06:10 Albumin 4.0 gm/dL (3.7-5.3) 04/17/18 06:10 Globulin 2.3 gm/dL 04/17/18 06:10 Albumin/Globulin Ratio 1.7 (1.0-1.8) 04/17/18 06:10 Triglycerides 317 mg/dL (<150) H 04/15/18 19:45 Cholesterol 206 mg/dL (<200) H 04/15/18 19:45 LDL Cholesterol Direct 121 mg/dL (75-193) 04/15/18 19:45 HDL Cholesterol 39 mg/dL (23-92) 04/15/18 19:45 TSH 0.76 uIU/ml (0.34-5.60) 04/17/18 06:10 [place] 0.91 mmol/L (0.5-1.0) 04/24/18 12:55 - Physical Exam Vitals and I&O: Vital Signs Temp 97.5 F 05/02/18 05:31 Pulse 61 05/02/18 05:31 Resp 19 05/02/18 05:31 BP 107/67 05/02/18 05:31 Pulse Ox 98 09/25/18 05:31 Intake & Output 05/01/18 05/02/18 05/02/18 18:59 06:59 18:59 Intake Total 1550 Balance 1550 Intake: Oral 1550 Other: # Voids 3 # Bowel Movements 0 Active Medications: Current Medications Acetaminophen/Hydrocodone Bitart ([place] 5mg/325mg) 1 tab PO Q4HR PRN PRN Reason: Pain (Severe) Stop: 06/15/18 11:57 Last Admin: 05/01/18 16:41 Dose: 1 tab Alprazolam (Xanax) 1 mg PO DAILY MARCELINA; Protocol Stop: 06/17/18 08:59 Last Admin: 05/01/18 08:47 Dose: 1 mg Alprazolam (Xanax) 0.5 mg PO 1700 MARCELINA; Protocol Stop: 06/18/18 16:59 Last Admin: 05/01/18 16:41 Dose: 0.5 mg Atorvastatin Calcium (Lipitor) 10 mg PO DAILY [facility]; Protocol Stop: 06/19/18 08:59 Last Admin: 05/01/18 08:47 Dose: 10 mg Fluoxetine HCl (Prozac) 40 mg PO DAILY MARCELINA; Protocol Stop: 06/20/18 10:29 Last Admin: 05/01/18 08:47 Dose: 40 mg Gabapentin (Neurontin) 400 mg PO QID MARCELINA Stop: 06/24/18 12:59 Last Admin: 05/01/18 20:38 Dose: 400 mg Lactobacillus Rhamnosus (Culturelle 15b) 1 each PO DAILY MARCELINA Stop: 06/16/18 13:59 Last Admin: 05/01/18 08:47 Dose: 1 each Lamotrigine (Lamictal) 25 mg PO DAILY MARCELINA; Protocol Stop: 06/20/18 08:59 Last Admin: 05/01/18 08:46 Dose: 25 mg [place] Carbonate (Eskalith) 300 mg PO BID MARCELINA; Protocol Stop: 06/27/18 10:59 Last Admin: 05/01/18 16:41 Dose: 300 mg Miscellaneous (Probiotic Screen) 1 ea MC PRN PRN PRN Reason: PROTOCOL Stop: 06/16/18 13:08 Quetiapine Fumarate (Seroquel) 200 mg PO HS MARCELINA Stop: 06/30/18 20:59 Last Admin: 05/01/18 20:39 Dose: 200 mg Trazodone HCl (Desyrel) 150 mg PO HS MARCELINA; Protocol Stop: 06/14/18 20:59 Last Admin: 05/01/18 20:39 Dose: 150 mg Triamcinolone Acetonide (Kenalog 0.1%) 1 appl TP BID MARCELINA Stop: 06/21/18 10:59 Last Admin: 05/01/18 16:42 Dose: 1 appl General: Alert, No acute distress, Other (Confused) HEENT: Atraumatic Neck: Supple Cardiovascular: Regular rate Lungs: Clear to auscultation Abdomen: Bowel sounds, Soft Extremities: Other (No edema) Neurological: Normal gait Skin: Other (Redness of face.) Psych/Mental Status: Other (Confused, not oriented) Assessment/Plan - Assessment Assessment: Patient is awake, alert, calm, in no acute distress. Dx: Contact dermatitis, Depression, Bipolar disorder, Hydrocephalus, Periphereal neuropathy. - Plan Plan: Patient follow by psychiatry. Wound care in left arm, will continue with SNF meds. Triamcinolone cream is added to treatment, soap will be change to Neutral soap. Will continue to monitor. Nutritional Asmnt/Malnutr-PDOC - Dietary Evaluation Malnutrition Findings (Please click <Entered> for more info): Nutritional Asmnt/Malnutrition Start: 04/20/18 15: 13 Text: Status: Complete Freq: Protocol: Document 04/20/18 15:13 LCHENG (Rec: 04/20/18 15:28 [email or web address] [email or web address]) Nutritional Asmnt/Malnutrition Patient General Information Nutritional Screening Low Risk Diagnosis psychosis Pertinent Medical Hx/Surgical Hx addictions, bipolar, normal presure hydrocephalus, peripheal neuropathy Subjective Information Pt seen sitting on bed at time of visit, awake and alert. pt stated food was fine, no question or concern. Per EMR, PO intake 100%. Current Diet Order/ Nutrition Support regular Pertinent Medications lipitor, culturelle Pertinent Labs 04/17 nutrition labs WNL Nutritional Hx/Data Height 1.73 m Height (Calculated Centimeters) 172.7 Current Weight (lbs) 76.204 kg Weight (Calculated Kilograms) 76.2 Weight (Calculated Grams) 78974.5 [place] Body Weight 140 Body Mass Index (BMI) 25.5 Weight Status Overweight GI Symptoms GI Symptoms None Last BM 04/17 x 2 Difficult in: None Skin Integrity/Comment: no skin problem noted per EMR Current %PO Good (75-100%) Estimated Nutritional Goals BEE in Kcals: Using Current wt Calories/Kcals/Kg 23-27 Kcals Calculated 1968-4099 Protein: Using Current wt Protein g/k.8-1 Protein Calculated 61-76 Fluid: ml 1748-2052ml (1ml/kcal) Nutritional Problem No current Nutrition Prob Problem N/A Malnutrition Alert Is there a minimum of two criteria No selected? Query Text:Check all the applicable criteria. A minimum of two criteria are recommended for diagnosis of either severe or non-severe malnutrition. Malnutrition Related to Morbid Obesity Malnutrition related to morbid obesity No Intervention/Recommendation Comments 1. Continue with regular diet as ordered. 2. Monitor PO intake, wt, labs and skin integrity 3. F/U as low risk in 7 days, 04/27 Expected Outcomes/Goals Expected Outcomes/Goals 1. PO intake to meet at least 75% of nutritional needs. 2. Wt stability, skin to remain intact, labs to approach WNL.
[2018-05-02] MEDS: Atorvastatin Calcium 10 MG TAB PO SCH (08:43)
[2018-05-02] MEDS: Lactobacillus Rhamnosus GG 15 Billion CFU CAP.SPRINK PO SCH (08:43)
[2018-05-02] MEDS: Triamcinolone Acetonide 0.1% Cream 15 gm TP SCH ×2 (08:52→16:49)
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
[2018-05-02] MEDS: Hydrocodone/APAP 5mg/325mg Tab PO PRN (14:21)
== END 2018-05-02 17:25 | DRG 885 ==
LOC: GERO2 14:02
PROVIDERS: ADMIT Psychiatry & Neurology Psychiatry; ATTEND Psychiatry & Neurology Psychiatry
DX: F31.9 Bipolar disorder, unspecified (principal); G91.9 Hydrocephalus, unspecified; G62.9 Polyneuropathy, unspecified; L30.9 Dermatitis, unspecified; F41.9 Anxiety disorder, unspecified; Z98.51 Tubal ligation status; Z88.0 Allergy status to penicillin; Z79.899 Other long term (current) drug therapy
CPT/HCPCS: 36415-UA; 80053-TC; 80061-TC; 80178-TC; 82948-90; 83036-90; 84443-TC; 85025-TC; 97530; G0410; X3904; Z7610